=== PATIENT | male | born 1955 | race Two or more races ===

== ENCOUNTER 2018-02-10 16:08 | Emergency (ER) | payer MEDICAID ==
[~2018-02-10] VITALS: Ht 170.2 cm; Wt 83.9 kg
--- NOTE | 2018-02-10 16:25 | NUR ---
PT WALKED IN TO THE ER W. W/ C/O HEADACHE, ABDOMINAL PAIN, NAUSEA, WEAKNESS PT REPOSRTED THAT HE'S BEEN DRINKING ALCOHOL STRAIGHT FOR THE LAST 3 WKS. ALERT AND ORIENTED. NAD RR EVEN AND UNLABROED. SKIN IS WARM AND NON DIPAHORETIC.
[2018-02-10] MEDS ORDERED: ONDANSETRON HCL/PF 4 MG/2 ML VIAL ONE (16:45)
[2018-02-10 16:57] LABS: APPEARANCE,URINE CLEAR (CLEAR); BILIRUBIN,URINE NEGATIVE (NEGATIVE); BLOOD, URINE TRACE Ery/uL (NEGATIVE); COLOR,URINE YELLOW (YELLOW); KETONES,URINE NEGATIVE (NEGATIVE); LEUKOCYTE ESTERASE ,URINE NEGATIVE (NEGATIVE); NITRITE, URINE NEGATIVE (NEGATIVE); PROTEIN,URINE NEGATIVE (NEGATIVE); UGLUCOSE NEGATIVE (NEGATIVE); UROBILINOGEN,URINE 0.2 EU/dL (0.2)
[2018-02-10] MEDS ORDERED: ONDANSETRON HCL/PF 4 MG/2 ML VIAL IVP ONE (17:00)
[2018-02-10] MEDS ORDERED: IV NS 0.9% 1,000 ML BAG IV ONE (17:00)
[2018-02-10 17:17] LABS: BASOPHILS % (AUTO) 0.5 % (0.0-2.0); EOSINOPHILS % (AUTO) 2.8 % (0.0-6.0); HEMATOCRIT 46 % (39-51); HEMOGLOBIN 15.3 g/dL (13.5-17.5); LYMPHOCYTES # (AUTO) 1.5 /CMM (0.8-4.8); LYMPHOCYTES % (AUTO) 30.6 % (20.0-44.0); MEAN CORPUSCULAR HGB CONC 34 g/dl (31.0-36.0); MEAN CORPUSCULAR VOLUME 92 fL (80-96); MONOCYTES # (AUTO) 0.3 /CMM (0.1-1.30); MONOCYTES % (AUTO) 6.2 % (2.0-12.0); NEUTROPHILS % (AUTO) 59.9 % (43.0-81.0); PLATELET COUNT (AUTO) 116 /CMM (150-450); RDW COEFFICIENT OF VARIATION 13.1 (11.5-15.0); RED BLOOD CELL COUNT(AUTO) 4.97 MIL/uL (4.5-6.0)
[2018-02-10 17:26] LABS: BACTERIA,URINE None seen /HPF (None Seen); SQUAMOUS EPITHELIAL CELL,UR Few /HPF (None Seen); WBC,URINE 0-2 /HPF (0-3)
[2018-02-10 17:36] LABS: ALBUMIN 3.5 g/dL (3.4-5.0); BAND % (MANUAL) 2 % (0.0-5.0); BILIRUBIN,DIRECT 0.1 mg/dL (0.0-0.2); BILIRUBIN,TOTAL 0.8 mg/dL (0.2-1.0); CALCIUM, SERUM 8.4 mg/dL (8.5-10.1); CREATININE 0.8 mg/dL (0.6-1.3); LYMPHOCYTES % (MANUAL) 34 % (16-48); POTASSIUM 3.6 mmol/L (3.5-5.1)
[2018-02-10 17:37] LABS: EOSINOPHILS % (MANUAL) 4 % (0-4); MONOCYTES % (MANUAL) 4 % (0-11.0); NEUTROPHILS % (MANUAL) 56 (42-76)
--- NOTE | 2018-02-10 18:12 | NUR ---
Patient discharged to home in stable condition. Written and verbal after care instructions given. Patient verbalizes understanding of instruction.
--- NOTE | 2018-02-10 18:12 | NUR ---
IV removed. Catheter intact and site benign. Pressure and 4x4 applied to site. No bleeding noted.
[2018-02-10 18:13] VITALS: BP 130/86
== END 2018-02-10 18:13 | disposition home or self-care (01) ==
LOC: ER 16:11
DX: F10.20 Alcohol dependence, uncomplicated (principal); I10 Essential (primary) hypertension; E78.5 Hyperlipidemia, unspecified
CPT/HCPCS: 36415; 80048-TC; 80076-TC; 80305; 81000-TC; 83690-TC; 85025-TC; A4606; G0480; J2405; J7030; Z7610

== ENCOUNTER 2018-04-10 09:08 | Emergency (ER) | payer MEDICAID ==
[~2018-04-10] VITALS: Ht 172.7 cm; Wt 90.3 kg
--- NOTE | 2018-04-10 09:22 | NUR ---
PATIENT TO ED DT NECK AND RIGHT SHOULDER PAIN, ACHING 7/10 X 7 DAYS. NO TRAUMA NOTED. PATIENT IS AWAKE AND ALERT. SKIN IS WARM TO TOUCH AND NON DIAPHORETIC. PATIENT IS AFEBRILE. VSS
[2018-04-10] MEDS ORDERED: KETOROLAC TROMETHAMINE INJ 30 MG/ML VIAL ONE (09:54)
[2018-04-10] MEDS ORDERED: KETOROLAC TROMETHAMINE INJ 60 MG/2 ML VIAL IM ONE (10:00)
--- NOTE | 2018-04-10 10:01 | NUR ---
Patient discharged to home in stable condition. Written and verbal after care instructions given. Patient verbalizes understanding of instruction.
[2018-04-10 10:02] VITALS: BP 152/75
== END 2018-04-10 10:03 | disposition home or self-care (01) ==
LOC: ER 09:12
DX: M54.12 Radiculopathy, cervical region (principal); I10 Essential (primary) hypertension; E78.5 Hyperlipidemia, unspecified; Z98.890 Other specified postprocedural states
CPT/HCPCS: 96372; 99283; A4606; J1885; Z7610

== ENCOUNTER 2020-06-11 19:41 | Emergency (ER) | payer MEDICAID ==
[~2020-06-11] VITALS: Ht 170.2 cm; Wt 81.6 kg
--- NOTE | 2020-06-11 20:43 | NUR ---
pt cell phone [phone]
--- NOTE | 2020-06-11 21:00 | NUR ---
CALLED PATIENT TO BE PLACED IN ROOM, NOT IN WAITING ROOM. ATTEMPTED TO CALL, NO ANSWER
--- NOTE | 2020-06-11 21:54 | NUR ---
CALLED PATIENT TO BE PLACED IN ROOM, NOT IN WAITING ROOM. ATTEMPTED TO CALL, NO ANSWER
--- NOTE | 2020-06-11 22:20 | NUR ---
BIBWIFE FROM HOME TO ER BED 7. AAOX4. NOT IN RESP DISTRESS, BRAETHING EVEN AND UNLABORED. CAME IN FOR FEVER AND HEADACHE. DURING ASSESSMENT, PT WAS AFEBRILE. HEADACHE IS REPORTED ON HIS FRONTAL AREA RATED 8/10 X 3 DAYS. DENIES CP, DENIES NVD. MD WAS AT THE BEDSIDE FOR EVAL. ORDERS RECEIVED, NOTED AND CARRIED OUT. IV LINE ESTABLSIHED ON L AC 18G.
[2020-06-11] MEDS ORDERED: diphenhydrAMINE HCL 50 MG/ML VIAL ONE (22:21)
[2020-06-11] MEDS ORDERED: METOCLOPRAMIDE HCL 10 MG/2 ML VIAL ONE (22:21)
[2020-06-11] MEDS ORDERED: KETOROLAC TROMETHAMINE 15 MG/ML VIAL ONE (22:21)
[2020-06-11] MEDS ORDERED: METOCLOPRAMIDE HCL 10 MG/2 ML VIAL IV ONE (22:30)
[2020-06-11] MEDS ORDERED: IV NS 0.9% 1,000 ML BAG IV ONE (22:30)
[2020-06-11] MEDS ORDERED: KETOROLAC TROMETHAMINE INJ 30 MG/ML VIAL IV ONE (22:30)
[2020-06-11] MEDS ORDERED: diphenhydrAMINE HCL 50 MG/ML VIAL IV ONE (22:30)
--- NOTE | 2020-06-11 23:18 | NUR ---
COVID SWAB DONE AND SENT TO LAB
--- NOTE | 2020-06-11 23:48 | NUR ---
Patient discharged to home in stable condition. Written and verbal after care instructions given. Patient verbalizes understanding of instruction.IV removed. Catheter intact and site benign. Pressure and 4x4 applied to site. No bleeding noted. Pt ambulatory with a steady gait. Pt was instructed to isolate himself until he get his covid result.
[2020-06-11 23:50] VITALS: BP 113/74
== END 2020-06-11 23:50 | disposition home or self-care (01) ==
LOC: ER 19:48
DX: U07.1 COVID-19 (principal); R51 Headache; R91.8 Other nonspecific abnormal finding of lung field; E78.5 Hyperlipidemia, unspecified; I10 Essential (primary) hypertension
CPT/HCPCS: 71045; 96374; 96375; 99284; C9803; J1200; J1885; J2765; J7030; U0003

== ENCOUNTER 2020-06-15 18:13 | Inpatient (IN) | payer MEDICAID ==
[~2020-06-15] VITALS: Ht 170.2 cm; Wt 86.2 kg
[2020-06-15] MEDS ORDERED: BACL10TA PO (18:41)
[2020-06-15] MEDS ORDERED: AZIT250T13 PO (18:41)
[2020-06-15] MEDS ORDERED: MELO-107 PO (18:41)
[2020-06-15] MEDS ORDERED: LOSA50TA39 PO (18:41)
[2020-06-15] MEDS ORDERED: DEXAMETHASONE SOD PHOSPHATE 10 MG/ML VIAL ONE (18:58)
[2020-06-15 19:00] LABS: BASOPHILS % (AUTO) 0.2 % (0.0-2.0); EOSINOPHILS % (AUTO) 0.1 % (0.0-6.0); HEMATOCRIT 45 % (39-51); HEMOGLOBIN 15.3 g/dL (13.5-17.5); LYMPHOCYTES # (AUTO) 0.6 /CMM (0.8-4.8); LYMPHOCYTES % (AUTO) 6.3 % (20.0-44.0); MEAN CORPUSCULAR HGB CONC 34 g/dl (31.0-36.0); MEAN CORPUSCULAR VOLUME 93 fL (80-96); MONOCYTES # (AUTO) 0.3 /CMM (0.1-1.30); MONOCYTES % (AUTO) 3.4 % (2.0-12.0); NEUTROPHILS # (AUTO) 7.9 /CMM (1.8-8.9); PLATELET COUNT (AUTO) 242 /CMM (150-450); RED BLOOD CELL COUNT(AUTO) 4.84 MIL/uL (4.5-6.0); WHITE BLOOD COUNT (AUTO) 8.8 K/uL (4.3-11.0)
[2020-06-15] MEDS ORDERED: ACETAMINOPHEN ES 500 MG TABLET PO ONE (19:00)
[2020-06-15] MEDS ORDERED: DEXAMETHASONE SOD PHOSPHATE 10 MG/ML VIAL IV ONE (19:00)
[2020-06-15] MEDS ORDERED: ACETAMINOPHEN ES 500 MG TABLET ONE (19:05)
--- NOTE | 2020-06-15 19:15 | NUR ---
Cough, congestion, fever, and sob x 3 days. PT AAOX4, LABORED BREATHING. PT SEEN & EVAL'D BY . PLACED ON KENNEL STAFF MEMBER. PLACED BY RT ON O2 NR 15L, O2 SAT 100%, PT TERESSA WELL. MEDICATED PER ERMD ORDER, PT TERESSA WELL. WILL CONT TO MONITOR.
[2020-06-15 19:23] LABS: ALANINE AMINOTRANSFERASE 20 U/L (12-78); ALBUMIN 2.9 g/dL (3.4-5.0); ALKALINE PHOSPHATASE 63 U/L (46-116); ASPARTATE AMINOTRANSFERASE 20 U/L (15-37); B-TYPE NATRIURETIC PEPTIDE 88 PG/ML (0-125); BILIRUBIN,TOTAL 0.5 mg/dL (0.2-1.0); CALCIUM, SERUM 8.3 mg/dL (8.5-10.1); CARBON DIOXIDE 27 mmol/L (21-32); CHLORIDE 102 mmol/L (98-107); CREATININE 0.9 mg/dL (0.6-1.3); GLUCOSE 129 mg/dL (74-106); POTASSIUM 3.9 mmol/L (3.5-5.1); SODIUM SERUM 137 mmol/L (136-145); UREA NITROGEN, BLOOD 15 mg/dL (7-18)
[2020-06-15 19:25] LABS: C-REACTIVE PROTEIN 12.1 mg/dL (0.0-0.9)
[2020-06-15] MEDS ORDERED: AZITHROMYCIN 500 MG in IV D5W 250 ML IV ONE (19:30)
[2020-06-15] MEDS ORDERED: ONDANSETRON HCL/PF 4 MG/2 ML VIAL IVP PRN (19:30)
[2020-06-15] MEDS ORDERED: MAG HYDROX/AL HYDROX/SIMETH 30 ML UDC PO PRN (19:30)
[2020-06-15] MEDS ORDERED: MAGNESIUM HYDROXIDE 30 ML UDC PO PRN (19:30)
[2020-06-15] MEDS ORDERED: Z GUARD REMEDY 2 OZ OINT TP PRN (19:30)
--- NOTE | 2020-06-15 19:57 | NUR ---
NE[facility] [phone]
--- NOTE | 2020-06-15 20:15 | NUR ---
PT SITTING UP, STS THAT HE'S FEELING BETTER. PT ON NR 15L, SAT 100%. DENIES CP, N/V, WEAKNESS AT THIS TIME. WILL CONT TO MONITOR.
--- NOTE | 2020-06-15 20:52 | NUR ---
tele [phone]
--- NOTE | 2020-06-15 21:12 | NUR ---
REPORT GIVEN TO NIDA OLIVER FOR TOMER.
--- NOTE | 2020-06-15 21:30 | NUR ---
TELE/RN RECEIVED PATIENT FORM ER NURSE VIA [facility]. PATIENT WAS ABLE TO WALK FROM [facility] TO BED WITH NO DIFFICULTY. PATIENT IS A/O X4 MONGOLIAN SPEAKER CURRENTLY WITH NO SIGNS OF ANY DISTRESS. PATIENT IS ON 15L OF O2 ON A NRB MASK SATURATING AT 100%. PATIENT IS COVID POSITIVE SAYS HE GOT TESTED AT A TESTING SITE AND RECENTLY RECEIVED THE POSITIVE RESULTS. NO COMPLAINTS OF ANY SOB. RESPIRATIONS ARE EVEN AND UNLABORED. ALL VITALS WNL WITH NO FEVER. PATIENT HAS A RAC #18 PATENT AND FLUSHING WITH NO SIGN OF ANY INFILTRATION. SKIN INTACT PATIENT IS SR ON THE MONITOR HR 85. ALL PERSONAL BELONGING ACCOUNTED FOR. PATIENT RESTING IN BED WITH NO COMPLAINTS. ALL SAFETY PRECAUTIONS APPLIED. CALL LIGHT WITHIN IN REACH BED. WILL CONTINUE TO MONITOR.
[2020-06-15] MEDS ORDERED: CEFTRIAXONE 1 G VIAL ONE (21:42)
[2020-06-15] MEDS: CEFTRIAXONE 1 G in IV D5W 50 ML IV SCH (22:01)
[2020-06-15] MEDS: ENOXAPARIN SODIUM 40 MG/0.4 ML DISP.SYRIN SQ SCH (22:02)
[2020-06-15] MEDS ORDERED: AZITHROMYCIN 500 MG VIAL ONE (22:10)
[2020-06-15 22:23] VITALS: BP 143/91
[2020-06-16] VITALS: BP 129/86
[2020-06-16 04:00] VITALS: BP 124/81
[2020-06-16 07:24] LABS: HEMATOCRIT 43 % (39-51); HEMOGLOBIN 14.5 g/dL (13.5-17.5); LYMPHOCYTES # (AUTO) 0.4 /CMM (0.8-4.8); MEAN CORPUSCULAR HGB CONC 33 g/dl (31.0-36.0); MEAN CORPUSCULAR VOLUME 93 fL (80-96); MONOCYTES # (AUTO) 0.3 /CMM (0.1-1.30); MONOCYTES % (AUTO) 3.4 % (2.0-12.0); NEUTROPHILS # (AUTO) 7.8 /CMM (1.8-8.9); NEUTROPHILS % (AUTO) 91.6 % (43.0-81.0); PLATELET COUNT (AUTO) 255 /CMM (150-450); RED BLOOD CELL COUNT(AUTO) 4.67 MIL/uL (4.5-6.0); WHITE BLOOD COUNT (AUTO) 8.5 K/uL (4.3-11.0)
[2020-06-16 07:28] LABS: CALCIUM, SERUM 8.3 mg/dL (8.5-10.1); CREATININE 0.9 mg/dL (0.6-1.3); PHOSPHORUS 4.4 mg/dL (2.5-4.9); POTASSIUM 4.5 mmol/L (3.5-5.1)
[2020-06-16 08:00] VITALS: BP 131/82
--- NOTE | 2020-06-16 08:00 | NUR ---
LUIGI RN NOTES RECEIVED PATIENT RESTING IN BED. PATIENT IS A/O X4 DANISH SPEAKER CURRENTLY WITH NO SIGNS OF ANY DISTRESS. PATIENT IS ON 15L OF O2 ON A NRB MASK SATURATING AT 100%. PATIENT IS COVID POSITIVE. NO COMPLAINTS OF ANY SOB. RESPIRATIONS ARE EVEN AND UNLABORED. ALL VITALS WNL WITH NO FEVER. PATIENT HAS A RAC #18 PATENT INTACT AND FLUSHING WELL WITH NO SIGN OF ANY INFILTRATION. SKIN INTACT PATIENT IS HEATHER ON THE MONITOR HR 59. . ALL SAFETY PRECAUTIONS ARE IMPLEMENTED . CALL LIGHT WITHIN IN REACH BED. WILL CONTINUE TO MONITOR.
[2020-06-16] MEDS: MELOXICAM 7.5 MG TABLET PO SCH (08:20)
[2020-06-16] MEDS: BACLOFEN (10 MG) 10 MG TABLET PO SCH ×2 (08:20→17:37)
[2020-06-16] MEDS: DEXAMETHASONE SOD PHOSPHATE 10 MG/ML VIAL IV SCH (08:20)
[2020-06-16] MEDS: HYDROCODONE/APAP 5/325MG TABLET PO PRN (08:44)
[2020-06-16 08:45] LABS: MAGNESIUM 2.4 mg/dL (1.8-2.4)
[2020-06-16] MEDS ORDERED: TOCILIZUMAB 400 MG in IV NS 0.9% 80 ML IV ONE (10:30)
[2020-06-16] MEDS: LOSARTAN POTASSIUM 50 MG TABLET PO SCH (11:35)
[2020-06-16 12:00] VITALS: BP 127/80
[2020-06-16 12:16] LABS: ALBUMIN 2.6 g/dL (3.4-5.0); BILIRUBIN,DIRECT 0.1 mg/dL (0.0-0.2); BILIRUBIN,TOTAL 0.4 mg/dL (0.2-1.0); TOTAL PROTEIN, SERUM 6.6 g/dL (6.4-8.2)
[2020-06-16] MEDS ORDERED: INVESTIGATIONAL MED MISC 1 EA in IV NS 0.9% 250 ML IV ONE (13:00)
[2020-06-16 16:00] VITALS: BP 130/76
--- NOTE | 2020-06-16 18:05 | NUR ---
LUIGI CLOSING RN NOTES PATIENT RESTING IN BED. PATIENT IS A/O X4 GAMBIAN SPEAKER CURRENTLY WITH NO SIGNS OF ANY DISTRESS. PATIENT IS ON 15L OF O2 ON A NRB MASK SATURATING AT 100%. PATIENT IS COVID POSITIVE. NO COMPLAINTS OF ANY SOB. RESPIRATIONS ARE EVEN AND UNLABORED AT MY SHIFT. ALL VITALS WNL AND NO FEVER. PATIENT HAS A RAC #18 PATENT INTACT AND FLUSHING WELL WITH NO SIGN OF ANY INFILTRATION. SKIN INTACT PATIENT IS SINUS RHYTM IN HIS 70'S ON THE MONITOR. ALL SAFETY PRECAUTIONS ARE IMPLEMENTED . CALL LIGHT WITHIN IN REACH BED. WILL ENDORSE TO [employer] NURSE FOR TOMER
[2020-06-16 20:00] VITALS: BP 140/99
--- NOTE | 2020-06-16 20:00 | NUR ---
REHABILITATION ENGINEER OPENING NOTES RECEIVED PT WITH HOB ELEVATED ON 15L NRB 02 SATURATION OF 100%. NO SIGNS OR SYMPTOMS OF RESPIRATORY DISTRESS. PT IS AAOX4, LUXEMBOURGER SPEAKING. CURRENTLY NSR ON TELE MONITOR AT 80 BPM. SKIN IS DRY AND INTACT, URINAL IS AT BEDSIDE AND CALL LIGHT IS IN REACH. PATIENT HAS AN 18G RAC. FLUSHED WITH NO SIGNS OF INFILTRATION. INFUSING NS TKO. BED IS LOCKED AND IN LOWEST POSITION. WILL CONTINUE TO MONITOR.
[2020-06-16] MEDS: CEFTRIAXONE 1 G in IV D5W 50 ML IV SCH (20:25)
[2020-06-16] MEDS: ENOXAPARIN SODIUM 40 MG/0.4 ML DISP.SYRIN SQ SCH (20:26)
--- NOTE | 2020-06-16 22:20 | NUR ---
2220 PATIENT WITH C/O COUGH AND REQUESTING FOR COUGH SYRUP, NOTIFIED DEMETRIO US VIA PHONE, AWAITING CALL BACK.
--- NOTE | 2020-06-16 23:00 | NUR ---
2300 PATIENT ASLEEP WHEN CHECKED. REMAINS ON NRM WITH NO SIGNS OF SHORTNESS OF BREATH NOTED. HOB ELEVATED FOR MAXIMUM OXYGENATION. NO COUGH NOTED AT THIS TIME. STILL AWAITING FOR WARP SPLITTER MAGEN TO CALL BACK.
[2020-06-17] VITALS (9 sets, daily range): BP systolic 123–149; BP diastolic 72–99
[2020-06-17] MEDS: ACETAMINOPHEN 325 MG TABLET PO PRN (04:12)
--- NOTE | 2020-06-17 04:19 | NUR ---
NIDA [place]. Addendum: 06/17/20 at 0423 by FRED MERA RN PT COMPLAINING OF A HEADACHE 01/18 AND REQUESTED SOMETHING FOR PAIN. ADMINISTERED PRN TYLENOL. WILL CONTINUE TO MONITOR.
--- NOTE | 2020-06-17 06:53 | NUR ---
CLOSING RN NOTES PT IS RESTING COMFORTABLY IN BED WITH NO SIGNS OF RESPIRATORY DISTRESS AND UNLABORED. NON PRODUCTIVE COUGH NOTED. ON A NRB AT 15 LPM. 02 SATURATION IS NOW 97%. WHEN AWAKE, HE HAS BEEN A/O X4. PT HAS BEEN FLUCTUATING BETWEEN NSR AND SINUS HEATHER AT 55 BPM. URINE OUTPUT FOR THE NIGHT WAS 300ML. SKIN IS INTACT. IV RAC 18G IS FLUSHED AND TKO OF NS. WITH NO INFILTRATION NOTED. ACETAMINOPHEN GIVEN AT 0412 FOR HEADACHE WITH RELIEF. BED IS IN LOWEST POSITION AND LOCKED. WITH CALL FELIX AND URINAL IN REACH. WILL REPORT TO ONCOMING NURSE.
[2020-06-17 07:38] LABS: ALBUMIN 2.4 g/dL (3.4-5.0); BILIRUBIN,DIRECT 0.1 mg/dL (0.0-0.2); BILIRUBIN,TOTAL 0.4 mg/dL (0.2-1.0); TOTAL PROTEIN, SERUM 6.2 g/dL (6.4-8.2)
[2020-06-17] MEDS: MELOXICAM 7.5 MG TABLET PO SCH (08:08)
[2020-06-17] MEDS: DEXAMETHASONE SOD PHOSPHATE 10 MG/ML VIAL IV SCH (08:08)
[2020-06-17] MEDS: BACLOFEN (10 MG) 10 MG TABLET PO SCH ×2 (08:08→17:56)
[2020-06-17] MEDS: HYDROCODONE/APAP 5/325MG TABLET PO PRN (08:08)
[2020-06-17] MEDS: LOSARTAN POTASSIUM 50 MG TABLET PO SCH (08:14)
--- NOTE | 2020-06-17 08:15 | NUR ---
LUIGI OPENING RN NOTES RECEIVED PATIENT RESTING IN BED. PATIENT IS A/O X4 CZECH SPEAKER CURRENTLY WITH NO SIGNS OF ANY DISTRESS. PATIENT IS ON 15L OF O2 ON A NRB MASK SATURATING AT 100%. PATIENT IS COVID POSITIVE. NO COMPLAINTS OF ANY SOB. RESPIRATIONS ARE EVEN AND UNLABORED. ALL VITALS WNL WITH NO FEVER. PATIENT HAS A RAC #18 PATENT INTACT AND FLUSHING WELL AND TKO IS RUNNING. WITH NO SIGN OF ANY INFILTRATION. SKIN INTACT PATIENT IS SINUS ON THE MONITOR HR 70'S. ALL SAFETY PRECAUTIONS ARE IMPLEMENTED . CALL LIGHT WITHIN IN REACH BED. WILL CONTINUE TO MONITOR.
[2020-06-17] MEDS ORDERED: GUAIFENESIN LA 600 MG TABLET.SA PO PRN ×2 (09:30→09:49)
[2020-06-17 11:00] LABS: BASOPHILS % (AUTO) 0.1 % (0.0-2.0); HEMATOCRIT 43 % (39-51); HEMOGLOBIN 14.2 g/dL (13.5-17.5); LYMPHOCYTES # (AUTO) 0.7 /CMM (0.8-4.8); LYMPHOCYTES % (AUTO) 4.6 % (20.0-44.0); MEAN CORPUSCULAR HGB CONC 33 g/dl (31.0-36.0); MEAN CORPUSCULAR VOLUME 93 fL (80-96); MONOCYTES # (AUTO) 0.6 /CMM (0.1-1.30); MONOCYTES % (AUTO) 4.2 % (2.0-12.0); NEUTROPHILS # (AUTO) 13.3 /CMM (1.8-8.9); NEUTROPHILS % (AUTO) 91.1 % (43.0-81.0); PLATELET COUNT (AUTO) 287 /CMM (150-450); WHITE BLOOD COUNT (AUTO) 14.6 K/uL (4.3-11.0)
--- NOTE | 2020-06-17 11:14 | NUR ---
LUIGI RN NOTES PT WAS COUGHING NEED THE MED FOR IT INFORMED DR Adam PRESCIBED MUCINEX BID PRN.
[2020-06-17 11:19] LABS: CALCIUM, SERUM 8.6 mg/dL (8.5-10.1); CREATININE 0.8 mg/dL (0.6-1.3); POTASSIUM 4.5 mmol/L (3.5-5.1)
[2020-06-17 11:25] LABS: ABG BASE EXCESS 1.7 mmol/L; ABG OXYGEN SATURATION 97.7 % (92.0-98.5); ABG PH 7.446 (7.350-7.450); ABG PO2 94.6 mmHg (75.0-100.0); AaDO2 435.9 mmHg; COHb 0.3 % (0.5-1.5); MetHb 0.2 % (0.0-1.5); O2Hb 97.2 % (94.0-97.0); SITE, ABG Right Femoral; VENT MODE, BG NRB
[2020-06-17] MEDS: GUAIFENESIN LA 600 MG TABLET.SA PO PRN ×2 (12:02→17:56)
[2020-06-17] MEDS: INVESTIGATIONAL MED MISC 1 EA in IV NS 0.9% 250 ML IV SCH (13:17)
[2020-06-17] MEDS ORDERED: TOCILIZUMAB 400 MG in IV NS 0.9% 80 ML IV ONE (16:00)
--- NOTE | 2020-06-17 18:12 | NUR ---
LUIGI CLOSING RN NOTES PATIENT IS RESTING IN BED. PATIENT IS A/O X4 DIVEHI SPEAKER CURRENTLY WITH NO SIGNS OF ANY DISTRESS. PATIENT IS ON 15L OF O2 ON A NRB MASK SATURATING AT 100%. PATIENT IS COVID POSITIVE. NO COMPLAINTS OF ANY SOB. RESPIRATIONS ARE EVEN AND UNLABORED. ALL VITALS WNL WITH NO FEVER. PATIENT HAS A RAC #18 PATENT INTACT AND FLUSHING WELL AND TKO IS RUNNING. WITH NO SIGN OF ANY INFILTRATION. SKIN INTACT PATIENT IS SINUS ON THE MONITOR HR 70'S. ALL SAFETY PRECAUTIONS ARE IMPLEMENTED . CALL LIGHT WITHIN IN REACH BED. WILL ENDORSE TO BOILING TUB OPERATOR NURSE FOR TOMER.
--- NOTE | 2020-06-17 19:30 | NUR ---
RN NOTE RECEIVED PT AWAKE IN BED, AO X 4, PERSIAN SPEAKING. PATIENT IN NO S/SX OF ACUTE DISTRESS AT THIS TIME. PATIENT'S BREATHING IS EVEN AND UNLABORED. PATIENT IS ON 15 L OF OXYGEN VIA NON-REBREATHER MASK; TOLERATING WELL. PATIENT ON TELE MONITOR READING SB, HR IS @ 55. NOTED IV SITE ON RIGHT AC G18 WITH NS AT TKO; PATENT AND FLUSHING WELL, NO S/S OF INFECTION OR INFILTRATION. PATIENT IS AMBULATORY, INDEPENDENT IN BED, WITH URINAL AT BEDSIDE, CLEAR SUKHWINDER URINE NOTED. SAFETY MEASURES IMPLEMENTED PER PROTOCOL. PATIENT BED ALARM IS ON. HEAD OF BED ELEVATED. BED IS LOCKED, IN LOWEST POSITION AND SIDE RAILS UP. CALL LIGHT WITHIN REACH OF THE PATIENT. WILL CONTINUE TO MONITOR AND REASSESS FOR ANY CHANGES.
[2020-06-17] MEDS: CEFTRIAXONE 1 G in IV D5W 50 ML IV SCH (21:27)
[2020-06-17] MEDS: ENOXAPARIN SODIUM 40 MG/0.4 ML DISP.SYRIN SQ SCH (21:28)
--- NOTE | 2020-06-17 23:20 | NUR ---
RN NOTE PATIENT TO RECEIVE TRANSFUSION OF 1 UNIT CONVALESCENT PLASMA PER ORDERS FROM DR Aleah PAN, BLOOD BAG CHECKED BY ME AND CONFIRMED BY TRIPP ZARAGOZA RN, WHO VERIFIED THE FOLLOWING INFORMATION- PRODUCT: [facility] Convalescent plasma 2, type O positive, MR# [id number], Unit# [id number], expires:06/22/2020, Volume:210 for patient GAMALIEL WASSERMAN. INFUSION STARTED at 2320, VS TAKEN AND RECORDED. WILL CONTINUE TO MONITOR FOR UNUSUAL REACTIONS.
--- NOTE | 2020-06-17 23:35 | NUR ---
RN NOTE CONVALESCENT PLASMA TRANSFUSION RUNNING WELL, NO TRANSFUSION REACTION NOTED, VS WNL. WILL CONTINUE TO MONITOR
[2020-06-18] VITALS (8 sets, daily range): BP systolic 125–146; BP diastolic 73–84
--- NOTE | 2020-06-18 02:30 | NUR ---
RN NOTE CONVALESCENT PLASMA TRANSFUSION COMPLETED. NO TRANSFUSION REACTION NOTED. VS STABLE BP137/73, T97.5, P51, R20, SATURATING AT 100% ON 15 HIGH FLOW OXYGEN. NO ACUTE DISTRESS NOTED. WILL CONTINUE TO MONITOR AND REASSESS FOR CHANGES.
[2020-06-18] MEDS: GUAIFENESIN LA 600 MG TABLET.SA PO PRN ×2 (06:18→19:45)
[2020-06-18 06:38] LABS: BASOPHILS % (AUTO) 0.3 % (0.0-2.0); EOSINOPHILS % (AUTO) 0.1 % (0.0-6.0); HEMATOCRIT 43 % (39-51); HEMOGLOBIN 14.4 g/dL (13.5-17.5); LYMPHOCYTES # (AUTO) 0.7 /CMM (0.8-4.8); LYMPHOCYTES % (AUTO) 5.9 % (20.0-44.0); MEAN CORPUSCULAR HGB CONC 34 g/dl (31.0-36.0); MEAN CORPUSCULAR VOLUME 92 fL (80-96); MONOCYTES # (AUTO) 0.4 /CMM (0.1-1.30); MONOCYTES % (AUTO) 3.6 % (2.0-12.0); NEUTROPHILS # (AUTO) 10.9 /CMM (1.8-8.9); NEUTROPHILS % (AUTO) 90.1 % (43.0-81.0); PLATELET COUNT (AUTO) 321 /CMM (150-450); RED BLOOD CELL COUNT(AUTO) 4.65 MIL/uL (4.5-6.0); WHITE BLOOD COUNT (AUTO) 12.1 K/uL (4.3-11.0)
--- NOTE | 2020-06-18 07:31 | NUR ---
RN LUIGI OPENING NOTE RECEIVED PT IN BED ALERT AND AWAKE AND ORIENTED x4, SAMI SPEAKING. PT IS ON NON REBREATHER MAKE AT 15L SATURATING AT 100% AT THIS MOMENT. PT IS ON TELE MONITORING WITH SB RHYTHM NOTED CURRENTLY. PT'S SKIN IS INTACT. ABLE TO USE URINAL WITHOUT HELP. PT'S HAS A RAC 18' INTACT, PATENT AND FLUSHED WELL. PT IS FULL CODE. NO ACUTE DISTRESS OR SOB NOTED AT THIS TIME. PT HOB ELEVATED AT TOLERATED. COVID 19 ISOLATION PRECAUTIONS FOLLOWED AND IMPLEMENTED AT ALL TIMES. CALL LIGHT WITHIN REACH AND FUNCTIONING. BED LOCKED AND IN LOWEST POSITION. WILL CONTINUE TO MONITOR AND ASSES PT.
[2020-06-18 07:56] LABS: CALCIUM, SERUM 8.3 mg/dL (8.5-10.1); CREATININE 0.8 mg/dL (0.6-1.3); POTASSIUM 4.5 mmol/L (3.5-5.1)
[2020-06-18] MEDS: DEXAMETHASONE SOD PHOSPHATE 10 MG/ML VIAL IV SCH (08:08)
[2020-06-18] MEDS: MELOXICAM 7.5 MG TABLET PO SCH (08:08)
[2020-06-18] MEDS: LOSARTAN POTASSIUM 50 MG TABLET PO SCH (08:09)
[2020-06-18] MEDS: BACLOFEN (10 MG) 10 MG TABLET PO SCH ×2 (08:09→17:06)
--- NOTE | 2020-06-18 09:58 | NUR ---
RT NOTE PATIENT ON 15L NON REBREATHER. PLACED ON 6L NASAL CANNULA PER ORDER AND KEEP SPO2 ABOVE 90%. PLACED BACK ON 15L NON REBREATHER DUE TO SPO2 86%. SPO2 95% ON NON REBREATHER 15L. HR 73, RR 22. NURSE AWARE.
[2020-06-18 11:36] LABS: BASOPHILS # (AUTO) 0.1 /CMM (0.0-0.2); BASOPHILS % (AUTO) 0.7 % (0.0-2.0); EOSINOPHILS % (AUTO) 0.1 % (0.0-6.0); HEMATOCRIT 45 % (39-51); HEMOGLOBIN 14.9 g/dL (13.5-17.5); LYMPHOCYTES # (AUTO) 0.4 /CMM (0.8-4.8); LYMPHOCYTES % (AUTO) 3.2 % (20.0-44.0); MEAN CORPUSCULAR HGB CONC 34 g/dl (31.0-36.0); MEAN CORPUSCULAR VOLUME 92 fL (80-96); MONOCYTES # (AUTO) 0.3 /CMM (0.1-1.30); NEUTROPHILS # (AUTO) 10.5 /CMM (1.8-8.9); PLATELET COUNT (AUTO) 338 /CMM (150-450); RED BLOOD CELL COUNT(AUTO) 4.84 MIL/uL (4.5-6.0); WHITE BLOOD COUNT (AUTO) 11.3 K/uL (4.3-11.0)
[2020-06-18 12:00] LABS: ALBUMIN 2.4 g/dL (3.4-5.0); BILIRUBIN,DIRECT 0.1 mg/dL (0.0-0.2); BILIRUBIN,TOTAL 0.3 mg/dL (0.2-1.0); CALCIUM, SERUM 8.4 mg/dL (8.5-10.1); CREATININE 0.9 mg/dL (0.6-1.3); POTASSIUM 4.1 mmol/L (3.5-5.1); TOTAL PROTEIN, SERUM 6.3 g/dL (6.4-8.2)
[2020-06-18] MEDS: INVESTIGATIONAL MED MISC 1 EA in IV NS 0.9% 250 ML IV SCH (13:38)
[2020-06-18] MEDS: HYDROCODONE/APAP 5/325MG TABLET PO PRN (13:58)
--- NOTE | 2020-06-18 16:03 | NUR ---
RN NOTES PT HAS REFUSED LINEN CHANGE, STATES HE IS OK FOR NOW. WILL TRY AGAIN LATER.
--- NOTE | 2020-06-18 19:08 | NUR ---
RN LUIGI CLOSING NOTE PT IS CURRENTLY LAYING IN BED AWAKE AND ALERT x4. PT IS IRISH SPEAKING. V/S WITHIN NORMAL RANGE WITH NO ACUTE DISTRESS OR SOB NOTED. HOB ELEVATED TOLERATED. PT ON 15L VIA NON REBREATHER MASK SATURATING AT 99% AT THIS TIME. PTS SKIN INTACT. PT IS ABLE TO MAKE HIS NEEDS KNOWN. PT USES URINAL. PT ON TELE MONITORING WITH SINUS HEATHER RHYTHM NOTED HR 57 AT THIS TIME. PT HAS A RAC 18 @TKO INTACT PATENT AND FLUSHED WELL. ALL NEEDS MET WITH HELP OF SEAPORT PLANNING MANAGER. CALL LIGHT WITHIN REACH AND FUNCTIONING. BED LOCKED AND IN LOWEST POSITION. WILL ENDORSE TO NEXT SHIFT NURSE FOR TOMER.
--- NOTE | 2020-06-18 19:24 | NUR ---
RN NOTE RECEIVED PT AWAKE IN BED, AO X 4, TELUGU SPEAKING ONLY. PATIENT IN NO S/SX OF ACUTE DISTRESS AT THIS TIME. PATIENT'S BREATHING IS EVEN AND UNLABORED. PATIENT IS ON 15 L OF OXYGEN VIA NON-REBREATHER MASK; TOLERATING WELL. PATIENT ON TELE MONITOR READING SB, HR IS @ 50'S. NOTED IV SITE ON RIGHT AC G18 WITH NS AT TKO; PATENT AND FLUSHING WELL, NO S/S OF INFECTION OR INFILTRATION. PATIENT IS AMBULATORY, INDEPENDENT IN BED MOBILITY, WITH URINAL AT BEDSIDE, CLEAR SUKHWINDER URINE NOTED. SAFETY MEASURES IMPLEMENTED PER PROTOCOL. PATIENT BED ALARM IS ON. HEAD OF BED ELEVATED. BED IS LOCKED, IN LOWEST POSITION AND SIDE RAILS UP. CALL LIGHT WITHIN REACH OF THE PATIENT. WILL CONTINUE TO MONITOR AND REASSESS FOR ANY CHANGES.
[2020-06-18] MEDS: CEFTRIAXONE 1 G in IV D5W 50 ML IV SCH (20:17)
[2020-06-18] MEDS: ENOXAPARIN SODIUM 40 MG/0.4 ML DISP.SYRIN SQ SCH (20:21)
[2020-06-19] VITALS (7 sets, daily range): BP systolic 95–155; BP diastolic 56–99
--- NOTE | 2020-06-19 07:01 | NUR ---
RN NOTE PATIENT REMAINS IN ROOM. NO SIGNS OF RESPIRATORY/ACUTE DISTRESS NOTED. STABLE ON 15L OXYGEN VIA NON REBREATHER MASK, SATURATING >95%, TOLERATING WELL. DUE MEDICATIONS ADMINISTERED SCHEDULED. KEPT CLEAN AND COMFORTABLE. RAC G18 PATENT, WITH NS AT TKO. HEAD OF BED ELEVATED. ENCOURAGED FLUID INTAKE TO FACILITATE ELIMINATION AND LIQUIFY SECRETIONS. SAFETY MEASURES IMPLEMENTED, BED IN LOWEST POSITION, LOCKED, SIDE RAILS UP, CALL LIGHT WITHIN REACH. ENDORSED TO AM SHIFT RN FOR CONTINUITY OF CARE.
--- NOTE | 2020-06-19 07:20 | NUR ---
RN OPENING NOTE RECEIVED PT IN BED A/O x4, ALBANIAN SPEAKING. PATIENT ON NRB AT 15L SATURATING AT 100% PT TELE READING SB . PT'S HAS A RAC 18' INTACT, PATENT AND FLUSHED WELL. NO ACUTE DISTRESS OR SOB NOTED AT THIS TIME. PT HOB ELEVATED AT TOLERATED. COVID 19 ISOLATION PRECAUTIONS FOLLOWED AND IMPLEMENTED AT ALL TIMES. CALL LIGHT WITHIN REACH AND FUNCTIONING. BED LOCKED AND IN LOWEST POSITION. WILL CONTINUE TO MONITOR AND ASSES PT.
[2020-06-19] MEDS: MELOXICAM 7.5 MG TABLET PO SCH (08:23)
[2020-06-19] MEDS: BACLOFEN (10 MG) 10 MG TABLET PO SCH ×2 (08:23→17:10)
[2020-06-19] MEDS: DEXAMETHASONE SOD PHOSPHATE 10 MG/ML VIAL IV SCH (08:24)
[2020-06-19] MEDS: LOSARTAN POTASSIUM 50 MG TABLET PO SCH (08:26)
[2020-06-19 11:17] LABS: BASOPHILS % (AUTO) 0.1 % (0.0-2.0); EOSINOPHILS % (AUTO) 1.3 % (0.0-6.0); HEMATOCRIT 49 % (39-51); LYMPHOCYTES # (AUTO) 0.4 /CMM (0.8-4.8); LYMPHOCYTES % (AUTO) 3.3 % (20.0-44.0); MEAN CORPUSCULAR HGB CONC 33 g/dl (31.0-36.0); MEAN CORPUSCULAR VOLUME 93 fL (80-96); MONOCYTES # (AUTO) 0.2 /CMM (0.1-1.30); MONOCYTES % (AUTO) 1.6 % (2.0-12.0); NEUTROPHILS # (AUTO) 10.5 /CMM (1.8-8.9); NEUTROPHILS % (AUTO) 93.7 % (43.0-81.0); PLATELET COUNT (AUTO) 349 /CMM (150-450); WHITE BLOOD COUNT (AUTO) 11.3 K/uL (4.3-11.0)
[2020-06-19 11:31] LABS: ALBUMIN 2.5 g/dL (3.4-5.0); BILIRUBIN,DIRECT 0.1 mg/dL (0.0-0.2); BILIRUBIN,TOTAL 0.4 mg/dL (0.2-1.0); CALCIUM, SERUM 8.3 mg/dL (8.5-10.1); CREATININE 0.9 mg/dL (0.6-1.3); POTASSIUM 4.2 mmol/L (3.5-5.1); TOTAL PROTEIN, SERUM 6.5 g/dL (6.4-8.2)
--- NOTE | 2020-06-19 13:00 | NUR ---
Rn notes Spoke to pharmacy , waiting on Rendesevir.
[2020-06-19] MEDS: INVESTIGATIONAL MED MISC 1 EA in IV NS 0.9% 250 ML IV SCH (13:49)
--- NOTE | 2020-06-19 13:50 | NUR ---
rn notes 1350- IV Rendesevir. BP 127/87 HR92
--- NOTE | 2020-06-19 19:02 | NUR ---
RN CLOSING NOTE WILL ENDORSED TO PM NURSE FOR TOMER. PT IS CURRENTLY LAYING IN BED AWAKE AND ALERT x4. PT IS YORUBA SPEAKING. V/S WITHIN NORMAL RANGE WITH NO ACUTE DISTRESS OR SOB NOTED. HOB ELEVATED TOLERATED. PT ON 15L VIA NON REBREATHER MASK SATURATING AT 99% AT THIS TIME. PT IS ABLE TO MAKE HIS NEEDS KNOWN. PT USES URINAL. PT ON TELE MONITORING WITH SINUS HEATHER RHYTHM NOTED HR 57 AT THIS TIME. PT HAS A RAC 18 @TKO INTACT PATENT AND FLUSHED WELL. SAFETY MEASURES IN PLACE, BED IN LOCKED AND IN LOWEST POSITION. CALL LIGHT WITHIN EASY REACH
[2020-06-19] MEDS: CEFTRIAXONE 1 G in IV D5W 50 ML IV SCH (20:14)
[2020-06-19] MEDS: HYDROCODONE/APAP 5/325MG TABLET PO PRN (20:15)
[2020-06-19] MEDS: GUAIFENESIN LA 600 MG TABLET.SA PO PRN (20:15)
[2020-06-19] MEDS: ENOXAPARIN SODIUM 40 MG/0.4 ML DISP.SYRIN SQ SCH (20:16)
[2020-06-20] VITALS: BP 128/93
[2020-06-20 04:00] VITALS: BP 122/85
[2020-06-20 06:25] LABS: BASOPHILS % (AUTO) 0.3 % (0.0-2.0); EOSINOPHILS % (AUTO) 1.8 % (0.0-6.0); HEMATOCRIT 50 % (39-51); HEMOGLOBIN 17.1 g/dL (13.5-17.5); LYMPHOCYTES # (AUTO) 0.8 /CMM (0.8-4.8); LYMPHOCYTES % (AUTO) 7.2 % (20.0-44.0); MEAN CORPUSCULAR HGB CONC 34 g/dl (31.0-36.0); MEAN CORPUSCULAR VOLUME 92 fL (80-96); MONOCYTES # (AUTO) 0.2 /CMM (0.1-1.30); MONOCYTES % (AUTO) 2.1 % (2.0-12.0); NEUTROPHILS # (AUTO) 10.1 /CMM (1.8-8.9); NEUTROPHILS % (AUTO) 88.6 % (43.0-81.0); PLATELET COUNT (AUTO) 408 /CMM (150-450); RED BLOOD CELL COUNT(AUTO) 5.46 MIL/uL (4.5-6.0); WHITE BLOOD COUNT (AUTO) 11.4 K/uL (4.3-11.0)
[2020-06-20 06:38] LABS: ALBUMIN 2.5 g/dL (3.4-5.0); BILIRUBIN,DIRECT 0.2 mg/dL (0.0-0.2); BILIRUBIN,TOTAL 0.5 mg/dL (0.2-1.0); CALCIUM, SERUM 8.5 mg/dL (8.5-10.1); CREATININE 0.8 mg/dL (0.6-1.3); POTASSIUM 4.3 mmol/L (3.5-5.1); TOTAL PROTEIN, SERUM 6.5 g/dL (6.4-8.2)
--- NOTE | 2020-06-20 07:20 | NUR ---
RN OPENING NOTES RECEIVED PT IN BED RESTING, A/O X4, CITIZEN OF [place] SPEAKING. PATIENT ON NRB AT 15L SATURATING AT 100% PT TELE READING SR . NO ACUTE DISTRESS OR SOB NOTED AT THIS TIME. PT HOB ELEVATED AT TOLERATED. COVID 19 ISOLATION PRECAUTIONS FOLLOWED AND IMPLEMENTED AT ALL TIMES. IV ACCESS INTACT NAD PATENT. DSAFETY PRECAUTIONS IN PLACE. CALL LIGHT WITHIN REACH AND FUNCTIONING. BED LOCKED AND IN LOWEST POSITION. WILL CONTINUE TO MONITOR ACCORDINGLY
[2020-06-20 07:42] LABS: C-REACTIVE PROTEIN 1.5 mg/dL (0.0-0.9)
[2020-06-20] MEDS: DEXAMETHASONE SOD PHOSPHATE 10 MG/ML VIAL IV SCH (08:44)
[2020-06-20] MEDS: LOSARTAN POTASSIUM 50 MG TABLET PO SCH (08:45)
[2020-06-20] MEDS: BACLOFEN (10 MG) 10 MG TABLET PO SCH ×2 (08:45→16:20)
[2020-06-20] MEDS: MELOXICAM 7.5 MG TABLET PO SCH (08:46)
[2020-06-20 09:37] VITALS: BP 137/83
[2020-06-20 13:06] LABS: ABG BASE EXCESS -0.4 mmol/L; ABG OXYGEN SATURATION 92.1 % (92.0-98.5); ABG PO2 61.4 mmHg (75.0-100.0); AaDO2 619.6 mmHg; COHb 0.3 % (0.5-1.5); MetHb 0.3 % (0.0-1.5); O2Hb 91.5 % (94.0-97.0); SITE, ABG Left Radial; VENT MODE, BG NRB 100%
[2020-06-20] MEDS: INVESTIGATIONAL MED MISC 1 EA in IV NS 0.9% 250 ML IV SCH (14:00)
[2020-06-20 14:05] VITALS: BP 158/99
[2020-06-20] MEDS: HYDROCODONE/APAP 5/325MG TABLET PO PRN (14:16)
[2020-06-20 16:00] VITALS: BP 143/87
--- NOTE | 2020-06-20 18:47 | NUR ---
RN CLOSING NOTES PATIENT IN STABLE CONDITION. ALL NEEDS ATTENDED AND PROVIDED. ALL DUE MEDS GIVEN ORDERED. KEPT PATIENT SAFE AND COMFORTABLE. BED IN LOW/LOCKED POSITION. SIDERAILS UPX2, CALL LIGHT IN REACH. WILL ENDORSE ACCORDINGLY.
--- NOTE | 2020-06-20 19:05 | NUR ---
RN NOTE RECEIVED PATIENT IN BED RESTING WITH HOB ELEVATED, WATCHING TV. AWAKE, ALERT, ORIENTED. BREATHING IS EVEN AND NON-LABORED. NO SOB NOTED AT THIS TIME. ON O2 15 LITERS VIA NON-REBREATHER MASK. O2 SAT IS 96% AT THIS TIME. ABLE TO MAKE NEEDS KNOWN. ON ISOLATION FOR POSITIVE COVID. IV SITE ON RIGHT AC GAUGE 18 IS CLEAN, DRY, AND PATENT. PATIENT IS AMBULATORY, CONTINENT OF BOWEL AND BLADDER. URINAL AT BEDSIDE. CALL LIGHT IS WITHIN EASY REACH. WILL CONTINUE TO MONITOR.
[2020-06-20 20:00] VITALS: BP 134/92
[2020-06-20] MEDS: CEFTRIAXONE 1 G in IV D5W 50 ML IV SCH (20:24)
[2020-06-20] MEDS: ENOXAPARIN SODIUM 40 MG/0.4 ML DISP.SYRIN SQ SCH (20:25)
[2020-06-21] VITALS: BP 113/79
[2020-06-21 04:00] VITALS: BP 121/81
[2020-06-21] MEDS: ACETAMINOPHEN 325 MG TABLET PO PRN ×2 (05:16→20:00)
--- NOTE | 2020-06-21 06:58 | NUR ---
RN NOTE PATIENT REMAINED STABLE THROUGHOUT THE NIGHT. NO SIGNIFICANT CHANGES NOTED. PATIENT KEPT ON 15 LITERS NON-REBREATHER MASK. ALL DUE MEDS GIVEN AND TOLERATED WELL. ALL NEEDS ATTENDED AND MET. PATIENT IS KEPT CLEAN, DRY, AND COMFORTABLE. WILL ENDORSE TO AM SHIFT RN FOR CONTINUATION OF CARE.
[2020-06-21 07:01] LABS: BASOPHILS % (AUTO) 0.2 % (0.0-2.0); EOSINOPHILS % (AUTO) 2.4 % (0.0-6.0); HEMATOCRIT 51 % (39-51); HEMOGLOBIN 17.2 g/dL (13.5-17.5); LYMPHOCYTES # (AUTO) 0.8 /CMM (0.8-4.8); LYMPHOCYTES % (AUTO) 6.7 % (20.0-44.0); MEAN CORPUSCULAR HGB CONC 34 g/dl (31.0-36.0); MEAN CORPUSCULAR VOLUME 92 fL (80-96); MONOCYTES # (AUTO) 0.3 /CMM (0.1-1.30); MONOCYTES % (AUTO) 2.3 % (2.0-12.0); NEUTROPHILS # (AUTO) 11.2 /CMM (1.8-8.9); NEUTROPHILS % (AUTO) 88.4 % (43.0-81.0); PLATELET COUNT (AUTO) 427 /CMM (150-450); RED BLOOD CELL COUNT(AUTO) 5.55 MIL/uL (4.5-6.0); WHITE BLOOD COUNT (AUTO) 12.7 K/uL (4.3-11.0)
--- NOTE | 2020-06-21 07:15 | NUR ---
RN OPENING NOTE Received patient asleep in bed appears calm and relaxed no signs of distress. On NRB Mask 15L o2 sat was at 94%. Patient is alert oriented x4 Bolivian Speaking. Tele monitor reading SR 90s. Noted with urinal at bedside. RAC # 18 flushes well. No co pain or discomfort. Safety measures reinforced. Call light within reach. Bed locked and on lowest position. Side rails up x2. Will cont to monitor.
[2020-06-21 07:50] LABS: ALBUMIN 2.6 g/dL (3.4-5.0); BILIRUBIN,DIRECT 0.2 mg/dL (0.0-0.2); BILIRUBIN,TOTAL 0.6 mg/dL (0.2-1.0); CALCIUM, SERUM 8.7 mg/dL (8.5-10.1); CREATININE 0.7 mg/dL (0.6-1.3); POTASSIUM 4.4 mmol/L (3.5-5.1); TOTAL PROTEIN, SERUM 6.1 g/dL (6.4-8.2)
[2020-06-21 08:00] VITALS: BP 123/88
[2020-06-21] MEDS: DEXAMETHASONE SOD PHOSPHATE 10 MG/ML VIAL IV SCH (09:14)
[2020-06-21] MEDS: MELOXICAM 7.5 MG TABLET PO SCH (09:15)
[2020-06-21] MEDS: BACLOFEN (10 MG) 10 MG TABLET PO SCH ×2 (09:15→16:15)
[2020-06-21] MEDS: LOSARTAN POTASSIUM 50 MG TABLET PO SCH (09:15)
[2020-06-21 12:00] VITALS: BP 130/85
--- NOTE | 2020-06-21 13:00 | NUR ---
[facility] CALL[facility] GET A BRIEF HISTORY OF THE PATIENT. SPOKE TO ANJEL PATIENT DAIRY TRUCK DRIVER. THEY ARE CONSIDERING ACCEPTING THE PATIENT.
[2020-06-21 16:00] VITALS: BP 136/82
--- NOTE | 2020-06-21 18:47 | NUR ---
RN CLOSING NOTE Patient asleep in bed appears calm and relaxed no signs of distress. Still on NRB Mask 15L o2 sat was at 93-94%. Tele monitor reading SR-ST 90-105. Urinal at bedside collected 900ml of clear yellow urine. BM x1. RAC # 18 flushes well. No co pain or discomfort. Safety measures reinforced. Call light within reach. Bed locked and on lowest position. Side rails up x2. Will endorse to material handler 2nd shift nurse for deya..
--- NOTE | 2020-06-21 19:10 | NUR ---
RN OPENING NOTES: Rec'd pt awake in bed, A&Ox4 Romansh speaking. On isolation for positive Covid. On 15L NRB mask, tolerating well. SR/ST on tele monitor. IV site on RAC #18 patent and flushed. Dressing c/d/i. Safety measures in place. Will continue to monitor.
[2020-06-21 20:00] VITALS: BP 121/95
[2020-06-21] MEDS: GUAIFENESIN LA 600 MG TABLET.SA PO PRN (20:00)
[2020-06-21] MEDS: ENOXAPARIN SODIUM 40 MG/0.4 ML DISP.SYRIN SQ SCH (20:01)
[2020-06-21] MEDS: CEFTRIAXONE 1 G in IV D5W 50 ML IV SCH (20:02)
[2020-06-22] VITALS (7 sets, daily range): BP systolic 119–139; BP diastolic 62–101
[2020-06-22] MEDS: HYDROCODONE/APAP 5/325MG TABLET PO PRN ×4 (04:30→16:53)
--- NOTE | 2020-06-22 06:55 | NUR ---
RN CLOSING NOTES: Pt remained stable throughout shift. No acute changes noted. On isolation for pos Covid. On 15L NRB, no SOB or respiratory distress noted. SR on tele monitor. IV site on RAC #18 patent with TKO infusing. Kept clean/dry. All meds administered as ordered. Safety measures in place. Will endorse to NIDA Granger for TOMER.
--- NOTE | 2020-06-22 08:00 | NUR ---
FINANCE ASSISTANT OPENING NOTES: Rec'd pt awake in bed, A&Ox4 Haitian speaking. On isolation for positive Covid. On 15L NRB mask, tolerating well.Attempted to titrate pt to 10L via NRB and pt desaturated to 89-90%. Dr Alberto aware. SR on tele monitor. IV site on RAC #18 patent and flushed. Dressing c/d/i. Safety measures in place. Will continue to monitor.
--- NOTE | 2020-06-22 08:10 | NUR ---
Resumed pt back to O2 at 15L/min via NRB. With O2 sat back to 94%.Denies SOB. Encouraged to do deep breathing exercises. Will continue to monitor.
[2020-06-22] MEDS: MELOXICAM 7.5 MG TABLET PO SCH (08:43)
[2020-06-22] MEDS: BACLOFEN (10 MG) 10 MG TABLET PO SCH ×2 (08:43→16:53)
[2020-06-22] MEDS: LOSARTAN POTASSIUM 50 MG TABLET PO SCH (08:43)
[2020-06-22] MEDS: DEXAMETHASONE SOD PHOSPHATE 10 MG/ML VIAL IV SCH (08:43)
[2020-06-22] MEDS: GUAIFENESIN LA 600 MG TABLET.SA PO PRN (17:05)
--- NOTE | 2020-06-22 18:58 | NUR ---
PT RESTING IN BED DENYING ANY PAIN OR DISTRESS. PAIN MGT FOR HEADACHE IS EFFECTIVE.STILL ON O2 AT 15L/MIN VIA NRB. O2 SAT 94% DENIES SOB.ENCOURAGED DEEP BREATHING EXERCISE.
--- NOTE | 2020-06-22 19:15 | NUR ---
RN OPENING NOTES: RECEIVED PT A/OX 4, IN BED RESTING COMFORTABLY. PATIENT IS MALAY SPEAKING. PATIENT IN NO S/SX OF ACUTE DISTRESS AT THIS TIME. NO SOB NOTED. PATIENT'S BREATHING IS EVEN AND UNLABORED. PATIENT IS ON 15 L OF OXYGEN VIA NON REBREATHER MASK; TOLERATING WELL. PATIENT ON TELE MONITORING READING SINUS RHYTHM UPON RECEIVED. NOTED IV SITE ON R AC #18 ; PATENT IN INTACT,NO S/S OF INFECTION OR INFILTRATION.SAFETY MEASURES HAVE BEEN PROVIDED AND IMPLEMENTED. PATIENT BED ALARM IS ON. HEAD OF BED ELEVATED. BED IS LOCKED, IN LOWEST POSITION AND SIDE RAILS UP. CALL LIGHT WITHIN REACH OF THE PATIENT. ISOLATION PRECAUTIONS IN PLACE. WILL CONTINUE TO MONITOR AND REASSESS FOR ANY CHANGES.
[2020-06-22] MEDS: ENOXAPARIN SODIUM 40 MG/0.4 ML DISP.SYRIN SQ SCH (22:28)
[2020-06-23] VITALS: BP 141/95
[2020-06-23 04:00] VITALS: BP 136/76
--- NOTE | 2020-06-23 06:21 | NUR ---
RN CLOSING NOTES PATIENT REMAINS IN ROOM IN NO SIGNS OF RESPIRATORY DISTRESS. PATIENT SATURATING 96%. VITAL SIGNS WNL. SAFETY PRECAUTIONS IN PLACE AND COMFORT MEASURES RENDERED. BED IN LOWEST POSITION, CALL LIGHT WITHIN REACH, BREAKS ON, SIDE RAILS UP. ALL NEEDS ATTENDED, MEDICATIONS GIVEN SCHEDULED AND ORDERED ; SHIFT ASSESSMENT/SKIN CARE DONE. PATIENT KEPT CLEAN AND DRY. WILL ENDORSE TO INCOMING SHIFT FOR TOMER.
--- NOTE | 2020-06-23 07:35 | NUR ---
RN/LUIGI RECEIVED PATIENT IN BED. NO ACUTE DISTRESS NOTED. PATIENT ALERT & ORIENTED X4. PATIENT ON 15L OXYGEN VIA NON-REBREATHER MASK, SATURATING WELL AT 92%. PATIENT ON ENVIRONMENTAL STUDIES FACULTY MEMBER, SINUS RHYTHM NOTED. PATIENT RIGHT ANTECUBITAL IV ACCESS IN PLACE, INTACT, PATENT, FLUSHED WELL. PATIENT SAFETY MAINTAINED. CALL LIGHT WITHIN REACH. WILL CONTINUE TO MONITOR.
[2020-06-23 08:00] VITALS: BP 131/83
[2020-06-23] MEDS: MELOXICAM 7.5 MG TABLET PO SCH (08:39)
[2020-06-23] MEDS: BACLOFEN (10 MG) 10 MG TABLET PO SCH ×2 (08:39→16:43)
[2020-06-23] MEDS: LOSARTAN POTASSIUM 50 MG TABLET PO SCH (08:40)
[2020-06-23] MEDS: DEXAMETHASONE SOD PHOSPHATE 10 MG/ML VIAL IV SCH (08:40)
[2020-06-23 12:00] VITALS: BP 143/79
--- NOTE | 2020-06-23 14:46 | NUR ---
RN/LUIGI PATIENT IN STABLE CONDITION. GAVE REPORT TO NIDA ELIAS FOR CONTINUITY OF CARE
--- NOTE | 2020-06-23 14:47 | NUR ---
INDIAN TRADER NOTES Received Patient resting in bed. A/O x 4, Moroccan speaking. VS stable with no acute distress. Breathing even and unlabored on 15LPM via non-rebreather with no respiratory distress. Denies pain. No signs and symptoms of pain. Telemonitor in place and patent reading SR with HR-68. 18g PIV on RAC clean, intact, patent and flushing well. Safety precautions in place. Bed locked and set to lowest position with side rails x 2 up. All needs rendered at this time. Call light within reach. Will continue to monitor.
[2020-06-23 16:00] VITALS: BP 130/72
--- NOTE | 2020-06-23 18:47 | NUR ---
HEALTH SAFETY INSTRUCTOR CLOSING NOTES Patient resting in bed. A/O x 4, Uzbek speaking. VS stable with no acute distress. Breathing even and unlabored on 15LPM via non-rebreather with no respiratory distress. Denies pain. No signs and symptoms of pain. Telemonitor in place and patent reading SR with HR-84. 18g PIV on RAC clean, intact, patent and flushing well. Safety precautions in place. Bed locked and set to lowest position with side rails x 2 up. All needs rendered at this time. Call light within reach. Will endorse plan of care to oncoming shift.
[2020-06-23 20:00] VITALS: BP 153/81
[2020-06-23] MEDS: ENOXAPARIN SODIUM 40 MG/0.4 ML DISP.SYRIN SQ SCH (21:36)
[2020-06-24] VITALS: BP 129/85
[2020-06-24 04:00] VITALS: BP 114/70
[2020-06-24 06:27] LABS: BASOPHILS % (AUTO) 0.2 % (0.0-2.0); HEMATOCRIT 48 % (39-51); LYMPHOCYTES % (AUTO) 6.1 % (20.0-44.0); MEAN CORPUSCULAR HGB CONC 33 g/dl (31.0-36.0); MEAN CORPUSCULAR VOLUME 92 fL (80-96); MONOCYTES # (AUTO) 0.7 /CMM (0.1-1.30); MONOCYTES % (AUTO) 4.6 % (2.0-12.0); NEUTROPHILS % (AUTO) 88.1 % (43.0-81.0); PLATELET COUNT (AUTO) 414 /CMM (150-450); RED BLOOD CELL COUNT(AUTO) 5.24 MIL/uL (4.5-6.0); WHITE BLOOD COUNT (AUTO) 15.9 K/uL (4.3-11.0)
[2020-06-24 06:46] LABS: CALCIUM, SERUM 8.4 mg/dL (8.5-10.1); POTASSIUM 4.5 mmol/L (3.5-5.1)
--- NOTE | 2020-06-24 07:41 | NUR ---
LOGISTICS SOLUTION MANAGER NOTES PATIENT RECEIVED IN BED RESTING COMFORTABLY, ON 15L NON-REBREATHER MASK, WITH NON-LABORED BREATHING AND NO SOB NOTED AT THIS TIME. PATIENT IV ACCESS INTACT AND PATENT. ON KRAFT DIGESTER OPERATOR SINUS RHYTHM 80'S. PATIENT PRESENTS NO PAIN AT THIS TIME. SAFETY PRECAUTIONS IMPLEMENTED WITH BED LOCKED, BED IN THE LOWEST POSITION, BILATERAL SIDE RAILS UP AND CALL LIGHT WITHIN EASY REACH OF THE PATIENT. WILL CONTINUE TO MONITOR.
[2020-06-24 08:00] VITALS: BP 156/76
[2020-06-24] MEDS: MELOXICAM 7.5 MG TABLET PO SCH (08:46)
[2020-06-24] MEDS: DEXAMETHASONE SOD PHOSPHATE 10 MG/ML VIAL IV SCH (08:46)
[2020-06-24] MEDS: BACLOFEN (10 MG) 10 MG TABLET PO SCH ×2 (08:46→16:03)
[2020-06-24] MEDS: LOSARTAN POTASSIUM 50 MG TABLET PO SCH (08:57)
--- NOTE | 2020-06-24 09:50 | NUR ---
RECEIVED REPORT FROM BRAULIO ALVA FOR TOMER. PATIENT IS ON NRB 15L O2 SAT 96% NO SIGNS OF DISTRESS.
[2020-06-24 11:31] LABS: ABG BASE EXCESS -0.3 mmol/L; ABG OXYGEN SATURATION 95.6 % (92.0-98.5); ABG PH 7.454 (7.350-7.450); ABG PO2 73.2 mmHg (75.0-100.0); AaDO2 462.6 mmHg; COHb 0.3 % (0.5-1.5); MetHb 0.2 % (0.0-1.5); O2Hb 95.1 % (94.0-97.0); SITE, ABG Right Radial; VENT MODE, BG NRB
[2020-06-24 12:00] VITALS: BP 132/77
[2020-06-24 16:00] VITALS: BP 129/73
[2020-06-24] MEDS: HYDROCODONE/APAP 5/325MG TABLET PO PRN (16:14)
--- NOTE | 2020-06-24 18:25 | NUR ---
RN LUIGI CLOSING NOTE PT IS IN BED AWAKE, ALERT AND ORIENTED X4. PT IS PAKISTANI SPEAKING WITH LIMITED SINHAL[place]. PT IS IN STABLE CONDITION WITH V/S WITHIN NORMAL RANGE AT THIS TIME. PT IS ON NON REBREATHER MASK 15L SATURATING AT 98% AT THIS MOMENT. PT IS ON TELE MONITORING WITH SINUS RHYTHM HR 83 NOTED AT THIS TIME. PT RAC INTACT, PATENT AND FLUSHING WELL. NO ACUTE DISTRESS NOTED. HOB ELEVATED TOLERATED. ALL NEEDS MET WITH HELP OF ECONOMIC ADVISER.CALL LIGHT WITHIN REACH AND FUNCTIONING. BED LOCKED AND IN LOWEST POSITION. WILL ENDORSE TO NEXT SHIFT NURSE FOR TOMER.
[2020-06-24 20:00] VITALS: BP 114/77
--- NOTE | 2020-06-24 21:30 | NUR ---
RN OPENING NOTE PT RECEIVED IN BED. PT IS A/O X4. ON 15 L VIA NON REBREATHER SATING 98%. PT DENIES ANY PAIN. ON TELE MONITOR SHOWING SR IN 80S. PT HAS RAC 18 G S/L FLUSHES WELL AND PATENT. SAFETY MEASURES IN PLACE CALL LIGHT IN REACH, BED AT LOWEST POSITION AND LOCKED, SIDE RAILS UP X2.
[2020-06-24] MEDS: ENOXAPARIN SODIUM 40 MG/0.4 ML DISP.SYRIN SQ SCH (21:45)
[2020-06-25] VITALS: BP 125/88
[2020-06-25 04:00] VITALS: BP 113/73
--- NOTE | 2020-06-25 07:03 | NUR ---
RN CLOSING NOTE PT REMAINED STABLE DURING MY SHIFT. REPORT GIVEN TO INCOMING SHIFT FOR TOMER.
--- NOTE | 2020-06-25 07:55 | NUR ---
GPS OVERFLOW RN OPENING NOTE RECEIVED PT IN BED AWAKE, ALERT AND ORIENTED X1. PT IS CURRENTLY ON ROOM AIR SATURATING AT 96%. PT'S V/S ARE WITHIN NORMAL RANGE. PT IS IN STABLE CONDITION AT HIS TIME. NO ACUTE DISTRESS OR SOB NOTED. HEAD OF BED ELEVATED TOLERATED. PT IS ON TELE MONITORING WITH SINUS HEATHER HR 46 AT THIS TIME. PT ON BILATERAL RESTRAINT ASSESS FOR SKIN INTEGRITY, RANGE OF MOTION AND CIRCULATION. PT'S SKIN IS INTACT. PT KEPT CLEAN, DRY AND COMFORTABLE. PT IS FULL CODE. ALL PRECAUTIONS FOLLOWED AND IMPLEMENTED PER COVID 19 DIAGNOSIS. RN NURSE RACHELLE AT BEDSIDE TO ENSURE SAFELY OF PT AT ALL TIMES. PT WAS ABLE TO SPEAK TO NACHO TRAN IN THIS MORNING. INFORMED MARC ABOUT'S PT'S STATUS AND CONDITION, NACHO TRAN VERBALIZED UNDERSTANDING. PT'S CALL LIGHT WITHIN REACH AND FUNCTIONING. BED LOCKED AND IN LOWEST POSITION. WILL CONTINUE TO MONITOR AND ASSESS PT. Addendum: 06/25/20 at 0942 by ALEJANDRO GALEANO RN WRONG PATIENT
[2020-06-25 08:00] VITALS: BP 121/70
--- NOTE | 2020-06-25 08:10 | NUR ---
RN LUIGI OPENING NOTE RECEIVED PT IN BED, AWAKE AND ALERT X4. PT IS [place] SPEAKING WITH LIMITED PERUVIAN. PT IS ABLE TO MAKE HIS NEEDS KNOWN. PT IS ON OXYGEN 15L VIA NON REBREATHER MASK SATURATING AT 100% AT THIS TIME. V/S WITHIN NORMAL RANGE WITH NO ACUTE DISTRESS OR SOB NOTED. HOB ELEVATED TOLERATED. PT'S SKIN IS INTACT. URINAL AT BEDSIDE. PT HAS A RAC 18' SALINE LOCK INTACT, PATENT AND FLUSHED WELL. PT IS FULL CODE WITH COVID 19 PRECAUTIONS FOLLOWED AND IMPLEMENTED AT ALL TIMES. CALL LIGHT WITHIN REACH AND FUNCTIONING. BED LOCKED AND IN LOWEST POSITION. WILL CONTINUE TO MONITOR AND ASSESS PT.
[2020-06-25] MEDS: LOSARTAN POTASSIUM 50 MG TABLET PO SCH (08:32)
[2020-06-25] MEDS: BACLOFEN (10 MG) 10 MG TABLET PO SCH ×2 (08:32→16:03)
[2020-06-25] MEDS: MELOXICAM 7.5 MG TABLET PO SCH (08:33)
[2020-06-25] MEDS: DEXAMETHASONE SOD PHOSPHATE 10 MG/ML VIAL IV SCH (08:34)
[2020-06-25 12:00] VITALS: BP 130/82
[2020-06-25 16:00] VITALS: BP 133/74
--- NOTE | 2020-06-25 18:48 | NUR ---
RN LUIGI/TELE CLOSING NOTE PT IS CURRENTLY IN BED, AWAKE, ALERT AND ORIENTED X4. PT IS ABLE TO MAKE HIS NEEDS KNOWN. PT IS ON 15L OF OXYGEN VIA NON BREATHER MASK. PT HAS AN 18 RAC S/L INTACT, PATENT AND FLUSHED WELL. PT IS IN STABLE CONDITION WITH NO ACUTE DISTRESS OR SOB NOTED. HOB ELEVATED AT ALL TIMES TOLERATED. PT ON TELE MONITORING WITH SINUS RHYTHM HR 79 AT THIS TIME. ALL MEDS ADMINISTERED AND TOLERATED WELL WITH NO ADVERSE EFFECTS NOTED. PT IS IN STABLE CONDITION AT THIS TIME. PT IS FULL CODE. ALL SAFETY PRECAUTIONS TAKEN PER COVID 19 DIAGNOSIS. CALL LIGHT WITHIN REACH AND FUNCTIONING. WILL ENDORSE TO NEXT SHIFT NURSE FOR TOMER.
[2020-06-25 20:00] VITALS: BP 127/71
--- NOTE | 2020-06-25 20:00 | NUR ---
LUIGI RN OPENING NOTES RECEIVED PATIENT IN BED, AWAKE, CONSCIOUS, COOPERATIVE, A/O X4, O2 @15LPM VIA NON REBREATHER MASK, UNLABORED BREATHING, NO SIGNS OF RESPIRATORY DISTRESS, RAC #18G SL TKO, NO COMPLAINTS OF PAIN, SIDE RAILS UP.
[2020-06-25] MEDS: ENOXAPARIN SODIUM 40 MG/0.4 ML DISP.SYRIN SQ SCH (21:04)
[2020-06-26] VITALS: BP 109/66
[2020-06-26 04:00] VITALS: BP 114/66
--- NOTE | 2020-06-26 06:34 | NUR ---
LUIGI RN CLOSING NOTES ENDORSED PATIENT IN BED, AWAKE, CONSCIOUS, COOPERATIVE, A/O X4, O2 @15LPM VIA NON REBREATHER MASK, UNLABORED BREATHING, NO SIGNS OF RESPIRATORY DISTRESS, RAC #18G SL TKO, NO COMPLAINTS OF PAIN, DUE MED GIVEN, SIDE RAILS UP FOR SAFETY.
--- NOTE | 2020-06-26 07:39 | NUR ---
GLASS GRINDER/ LUIGI OPENING NOTE RECEIVED PT IN BED AWAKE, ALERT AND ORIENTED X4. PT IS KHMER SPEAKING WITH LIMITED CHINESE. PT IS ABLE TO MAKE HIS NEEDS KNOWN. PT IS ON TELE MONITORING SINUS RHYTHM HR 87 AT THIS TIME. PT HAS A RIGHT AC 18' INTACT, PATENT AND FLUSHED WELL. PT ON OXYGEN 15L NON REBREATHER MASK SATURATING AT 96% AT THIS TIME. PT IS FULL CODE. ALL SAFETY PRECAUTIONS TAKEN AND IMPLEMENTED PER COVID 19 DIAGNOSIS. PT IS IN STABLE CONDITION. NO ACUTE DISTRESS OR SOB NOTED. HOB ELEVATED TOLERATED. CALL LIGHT WITHIN REACH AND FUNCTIONING. BED LOCKED AND IN LOWEST POSITION. WILL CONTINUE TO MONITOR AND ASSESS PT.
[2020-06-26 08:00] VITALS: BP 113/71
[2020-06-26] MEDS: MELOXICAM 7.5 MG TABLET PO SCH (09:04)
[2020-06-26] MEDS: BACLOFEN (10 MG) 10 MG TABLET PO SCH ×2 (09:04→16:34)
[2020-06-26] MEDS: LOSARTAN POTASSIUM 50 MG TABLET PO SCH (09:04)
[2020-06-26] MEDS: DEXAMETHASONE SOD PHOSPHATE 10 MG/ML VIAL IV SCH (09:04)
[2020-06-26 12:00] VITALS: BP 124/76
[2020-06-26 16:00] VITALS: BP 129/81
--- NOTE | 2020-06-26 18:50 | NUR ---
WALLPAPER CONSULTANT/LUIGI CLOSING NOTE PT IS CURRENTLY IN BED AWAKE, ALERT AND ORIENTED X4. PT IS INDONESIAN SPEAKING WITH LIMITED MONGOLIAN. PT IS ON OXYGEN 15L VIA NON REBREATHER MASK. PT ON TELE MONITORING WITH SINUS RHYTHM HR 78 NOTED AT THIS TIME. PT'S RIGHT AC 18' INTACT, PATENT AND FLUSHED WELL. SCHEDULED MEDS GIVEN AND TOLERATED WELL WITH NO ADVERSE EFFECTS NOTED AT THIS TIME. PT IS IN STABLE CONDITION WITH NO ACUTE DISTRESS NOTED AT THIS TIME. CALL LIGHT WITHIN REACH AND FUNCTIONING. BED LOCKED AND IN LOWEST POSITION. WILL ENDORSE TO NEXT SHIFT NURSE FOR TOMER.
--- NOTE | 2020-06-26 19:30 | NUR ---
UTILITY APPRAISER OPENING NOTES PATIENT AWAKE IN BED. A/OX4. ON NON-REBREATHER MASK 15L; NO S/S OF ACUTE RESPIRATORY DISTRESS; PATIENT C/O SLIGHT SOB. PATIENT DENIES ANY PAIN AT THIS TIME. TELE MONITOR READING NSR, HEART RATE 91. IV PRESENT ON RIGHT AC, SIZE 18, INTACT & PATENT WITH NS RUNNING TKO. CONTACT/DROPLET PRECAUTIONS IN PLACE FOR POSITIVE COVID 19. SAFETY MEASURES IN PLACE AND PATIENT'S NEEDS IN PLACE. BED LOCKED, SIDE RAILS X2, HOB ELEVATED, CALL LIGHT WITHIN REACH. WILL CONTINUE TO MONITOR.
[2020-06-26 20:00] VITALS: BP 122/84
[2020-06-26] MEDS: ENOXAPARIN SODIUM 40 MG/0.4 ML DISP.SYRIN SQ SCH (20:21)
[2020-06-27] VITALS: BP 131/73
[2020-06-27 04:00] VITALS: BP 95/63
--- NOTE | 2020-06-27 05:19 | NUR ---
CEMENT WORKER NOTES TITRATED OXYGEN FROM 15L TO 12L ON NON-REBREATHER MASK; SPO2 97%. NO S/S OF ACUTE RESPIRATORY DISTRESS NOTED. WILL CONTINUE TO MONITOR.
--- NOTE | 2020-06-27 06:42 | NUR ---
ISOTOPE HYDROLOGIST CLOSING NOTES PATIENT SLEEPING IN BED, EASY TO AWAKEN. A/OX4. ON NON-REBREATHER MASK 12L; SPO2 97%; NO S/S OF ACUTE RESPIRATORY DISTRESS. TELE MONITOR READING SINUS HEATHER, HEART RATE 48. IV PRESENT ON RIGHT AC, SIZE 18, INTACT & PATENT WITH NS RUNNING TKO. SAFETY MEASURES IN PLACE AND PATIENT'S NEEDS IN PLACE. BED LOCKED, SIDE RAILS X2, HOB ELEVATED, CALL LIGHT WITHIN REACH. WILL ENDORSE TO DAY SHIFT NURSE PLAN OF CARE.
[2020-06-27 08:00] VITALS: BP 112/66
--- NOTE | 2020-06-27 08:00 | NUR ---
LOCAL DELIVERY DRIVER NOTES PATIENT IN BED AWAKE/A/OX4. NO SOB OR DISCOMFORT NOTED AT THIS TIME. ON 12L NON REBREATHER MASK SATURATING 95%. ON DROPLET ISOLATION FOR COVID. RIGHT SITE AC SALINE LOCK PATENT(TKO). CALL LIGHT WITHIN REACH . WILL MONITOR THE PATIENT.
[2020-06-27] MEDS: MELOXICAM 7.5 MG TABLET PO SCH (08:55)
[2020-06-27] MEDS: BACLOFEN (10 MG) 10 MG TABLET PO SCH ×2 (08:55→17:00)
[2020-06-27] MEDS: LOSARTAN POTASSIUM 50 MG TABLET PO SCH (08:55)
[2020-06-27] MEDS: DEXAMETHASONE SOD PHOSPHATE 10 MG/ML VIAL IV SCH ×2 (08:55→08:58)
[2020-06-27 12:00] VITALS: BP 127/67
[2020-06-27 16:00] VITALS: BP 126/73
--- NOTE | 2020-06-27 18:49 | NUR ---
PHOTOCOPYING EQUIPMENT MECHANIC NOTES PATIENT IN BED CALM AND RELAXED, A/OX4 STILL ON COVID DROPLET ISOLATION AND NON REBREATHER MASK 12L. ALL NEEDS ATTENDED. NO SOB OR DISCOMFORT AT THIS TIME. NO MAJOR CHANGES DURING THE SHIFT. REPORT GIVEN TO CIRCLE EDGER NURSE FOR TOMER.
--- NOTE | 2020-06-27 19:20 | NUR ---
RN OPENING NOTE RECEIVED PATIENT IN BED RESTING ALERT ORIENTED X4 VERBALLY RESPONSIVE,ABLE TO MAKE NEEDS KNOWN,ON 12L/MIN NON BREATHER MASK OXYGEN NO SOB NOT ACUTE DISTRESS AT THIS TIME NOTED,MONITOR FOR COVID 19 POSITIVE DROPLET/CONTACT ISOLATION,CONTINENT TO BOWEL/BLADDER SKIN IS WARM TO TOUCH,IV SITE IS ON RIGHT AC INTACT PATENT FLUSHED.IMPLEMENT SAFETY MEASURE,BED ALARM IS ON AND IN LOW POSITION,CALL LIGHT WITHIN REACH,CONTINUE TO MONITOR,
[2020-06-27 20:00] VITALS: BP 124/76
[2020-06-27] MEDS: ENOXAPARIN SODIUM 40 MG/0.4 ML DISP.SYRIN SQ SCH (21:06)
[2020-06-28] VITALS: BP 114/69
[2020-06-28] MEDS: ACETAMINOPHEN 325 MG TABLET PO PRN (02:12)
--- NOTE | 2020-06-28 02:12 | NUR ---
RN NOTE ACETAMINOPHEN PRN 325MG 2 TABLET EQUAL 650MG FOR MILD PAIN 3/10 GIVEN
[2020-06-28 04:00] VITALS: BP 119/73
[2020-06-28 06:30] LABS: BASOPHILS % (AUTO) 0.2 % (0.0-2.0); EOSINOPHILS % (AUTO) 0.6 % (0.0-6.0); HEMATOCRIT 43 % (39-51); HEMOGLOBIN 14.2 g/dL (13.5-17.5); LYMPHOCYTES # (AUTO) 0.9 /CMM (0.8-4.8); MEAN CORPUSCULAR HGB CONC 34 g/dl (31.0-36.0); MEAN CORPUSCULAR VOLUME 93 fL (80-96); MONOCYTES # (AUTO) 0.7 /CMM (0.1-1.30); MONOCYTES % (AUTO) 5.1 % (2.0-12.0); NEUTROPHILS # (AUTO) 11.5 /CMM (1.8-8.9); NEUTROPHILS % (AUTO) 87.1 % (43.0-81.0); PLATELET COUNT (AUTO) 306 /CMM (150-450); RED BLOOD CELL COUNT(AUTO) 4.57 MIL/uL (4.5-6.0); WHITE BLOOD COUNT (AUTO) 13.2 K/uL (4.3-11.0)
--- NOTE | 2020-06-28 06:40 | NUR ---
RN CLOSING NOTE PATIENT REMAINS IN ALERT ORIENTED X4 VERBALLY RESPONSIVE,ON MONITORING FOR COVID 19 POSITIVE AND DROPLET/CONTACT ISOLATION ALSO HE IS ON 12L OXYGEN VIA NON-BREATHER MASK,NO SOB NOT ACUTE DISTRESS NOTED,ALL DUE MEDS GIVEN MD ORDERED,KEPT CLEAN AND DRY ALL THE TIME,KEPT CALL LIGHT WITHIN REACH,IV SITE IS ON RIGHT AC INTACT PATENT.ENDORSE NEXT COMING SHIFT FOR CONTINUATION OF CARE.
[2020-06-28 06:57] LABS: CALCIUM, SERUM 8.1 mg/dL (8.5-10.1); CREATININE 0.9 mg/dL (0.6-1.3); MAGNESIUM 2.1 mg/dL (1.8-2.4); PHOSPHORUS 3.9 mg/dL (2.5-4.9); POTASSIUM 4.4 mmol/L (3.5-5.1)
--- NOTE | 2020-06-28 07:30 | NUR ---
TELE/RN OPENING NOTES Patient resting in bed, A&O x 4, Urdu speaking but understands micronesian. No complaints of pain/discomfort at this time. Breathing even and non-labored on 12 L via NRB. No respiratory or cardiac distress noted. On tele monitor, reading ST 112. Denies any pain/discomfort. IV access noted on R AC , patent and intact, running NS TKO. No s/s of infiltration, infection, or bleeding noted on site. Sensation from all peripheral extremities remained intact. Fall precautions maintained. Will continue with current plan of care.
[2020-06-28 07:59] LABS: ABG BASE EXCESS 2.7 mmol/L; ABG OXYGEN SATURATION 96.9 % (92.0-98.5); ABG PCO2 45.5 mmHg (35.0-45.0); ABG PH 7.408 (7.350-7.450); ABG PO2 87.1 mmHg (75.0-100.0); AaDO2 363.1 mmHg; COHb 0.5 % (0.5-1.5); MetHb 0.1 % (0.0-1.5); O2Hb 96.3 % (94.0-97.0); SITE, ABG Left Radial; VENT MODE, BG 12 lpm NRB
[2020-06-28 08:00] VITALS: BP 121/74
[2020-06-28] MEDS: LOSARTAN POTASSIUM 50 MG TABLET PO SCH (08:37)
[2020-06-28] MEDS: BACLOFEN (10 MG) 10 MG TABLET PO SCH ×2 (08:37→16:08)
[2020-06-28] MEDS: DEXAMETHASONE SOD PHOSPHATE 10 MG/ML VIAL IV SCH (08:37)
[2020-06-28] MEDS: MELOXICAM 7.5 MG TABLET PO SCH (08:37)
--- NOTE | 2020-06-28 09:33 | NUR ---
TELE/RN NOTES Dr. Alberto at bedside, reported ABG results for PCO2 - 45.5, ordered 6 L oxygen via NC, keep at 90%. Order carried out.
[2020-06-28 12:00] VITALS: BP 126/69
[2020-06-28 16:00] VITALS: BP 133/85
--- NOTE | 2020-06-28 18:21 | NUR ---
TELE/RN CLOSING NOTES Patient resting in bed and remained stable throughout shift. A&O x 4, VSS, afebrile, no respiratory distress noted. Patient saturating well on 6L oxygen via NC, no respiratory distress noted. On tele monitor, reading SR 96. No cardiac distress noted. Denies any pain/discomfort. IV access on R AC remained patent and intact, running NS TKO. No s/s of infiltration, infection, or bleeding noted on site. Sensation from all peripheral extremities remained intact. Fall precautions maintained. Will endorse to power and recovery shift engineer nurse.
--- NOTE | 2020-06-28 19:43 | NUR ---
RN OPENING NOTES PATIENT RECEIVED RESTING IN BED A/O X 4, PASHT[place] SPEAKING. ON 5L OF O2 WITH BREATHING EVEN AND UNLABORED, NO SOB NOTED O2SAT 95%. NO SIGNS OF ACUTE DISTRESS. NO COMPLAINTS OF PAIN OR DISCOMFORT AT THE MOMENT. IV LOCATED ON R AC TKO. SAFETY PRECAUTIONS IN PLACE WITH BED IN LOWEST POSITION, CALL LIGHT WITHIN REACH, BREAKS ON, SIDE RAILS UP. WILL CONTINUE TO MONITOR THROUGHOUT THE NIGHT.
[2020-06-28 20:00] VITALS: BP 134/89
[2020-06-28] MEDS: ENOXAPARIN SODIUM 40 MG/0.4 ML DISP.SYRIN SQ SCH (21:47)
[2020-06-29] VITALS (7 sets, daily range): BP systolic 101–136; BP diastolic 66–85
--- NOTE | 2020-06-29 06:39 | NUR ---
RN CLOSING NOTES PATIENT RESTING IN BED A/O X 4, MOSTLY KINY[place]WANDA SPEAKING ABLE TO UNDERSTAND SOME CITIZEN OF [place]. ON 2L OF O2 WITH BREATHING EVEN AND UNLABORED, NO SOB NOTED O2 SAT 95%. NO SIGNS OF ACUTE DISTRESS. NO COMPLAINTS OF PAIN OR DISCOMFORT AT THE MOMENT. IV LOCATED ON R AC TKO. SAFETY PRECAUTIONS IN PLACE WITH BED IN LOWEST POSITION, CALL LIGHT WITHIN REACH, BREAKS ON, SIDE RAILS UP. ALL NEEDS ATTENDED TO THROUGHOUT THE NIGHT. WILL ENDORSE TO ONCOMING SHIFT ABOUT TOMER.
--- NOTE | 2020-06-29 07:30 | NUR ---
RN/LUIGI RECEIVED PATIENT IN BED. NO ACUTE DISTRESS NOTED. ALERT & ORIENTED X4. PATIENT ON 5L OXYGEN VIA NASAL CANULA, SATURATING WELL AT 92%, BREATHING EVEN AND UNLABORED. PATIENT ON TIRE STRIPPER, SINUS RHYTHM NOTED. PATIENT IV ACCESS RIGHT ANTECUBITAL INTACT, PATENT, FLUSHED WELL. PATIENT SAFETY MAINTAINED. CALL LIGHT WITHIN REACH. WILL CONTINUE TO MONITOR.
[2020-06-29] MEDS: DEXAMETHASONE SOD PHOSPHATE 10 MG/ML VIAL IV SCH (08:57)
[2020-06-29] MEDS: MELOXICAM 7.5 MG TABLET PO SCH (08:57)
[2020-06-29] MEDS: LOSARTAN POTASSIUM 50 MG TABLET PO SCH (08:57)
[2020-06-29] MEDS: BACLOFEN (10 MG) 10 MG TABLET PO SCH ×2 (08:57→16:27)
--- NOTE | 2020-06-29 18:39 | NUR ---
RN/LUIGI PATIENT IN BED. NO ACUTE DISTRESS NOTED. ALERT & ORIENTED X4. PATIENT ON 4L OXYGEN VIA NASAL CANULA, SATURATING WELL AT 94%, BREATHING EVEN AND UNLABORED. PATIENT ON WETLANDS TECHNICIAN, SINUS RHYTHM NOTED. PATIENT IV ACCESS RIGHT ANTECUBITAL INTACT, PATENT, FLUSHED WELL. PATIENT SAFETY MAINTAINED. CALL LIGHT WITHIN REACH. WILL ENDORSE PLAN OF CARE TO ONCOMING NURSE FOR CONTINUITY OF CARE
--- NOTE | 2020-06-29 19:30 | NUR ---
TELE 1 RN NOTE RECEIVED PATIENT SITTING IN BED. ALERT AND ORIENTED X4. EQUATORIAL GUINE[place] SPEAKING. ISOLATION PRECAUTION FOR DROPLET COVID POSITIVE 06/15/20. PT IS ON O2 4-5L VIA NC TO KEEP SATURATION ABOVE 90%. PT IS CONTINENT PER URINAL. HAS SALINE LOCK ON RIGHT AC, INTACT AND PATENT. IVF AT TKO RATE. CALL LIGHT WITHIN REACH. BED IS ON THE LOWEST POSITION AND LOCKED. NEEDS ANTICIPATED.
[2020-06-29] MEDS: ENOXAPARIN SODIUM 40 MG/0.4 ML DISP.SYRIN SQ SCH (21:03)
[2020-06-29] MEDS: ACETAMINOPHEN 325 MG TABLET PO PRN (21:04)
[2020-06-30] VITALS: BP 117/77
--- NOTE | 2020-06-30 01:05 | NUR ---
TELE1 RN NOTES SLEEPING,KEPT WARM AND COMFORTABLE.
[2020-06-30 04:00] VITALS: BP 123/80
--- NOTE | 2020-06-30 06:10 | NUR ---
TELE 1 RN NOTE PATIENT IS AWAKE. HEADACHE IMPROVED WITH PRN TYLENOL. SALINE LOCK IS PATENT. REMAINS IN ISOLATION FOR COVID 19 POSITIVE. NO SOB. NO FEVER. CALL LIGHT WITHIN REACH. BED LOCKED AND IN LOWEST POSITION. NEEDS ATTENDED. WILL ENDORSE TO DAY SHIFT NURSE NIDA ZHENG TO CONTINUE CARE.
[2020-06-30 08:00] VITALS: BP 114/73
[2020-06-30] MEDS: LOSARTAN POTASSIUM 50 MG TABLET PO SCH (08:40)
[2020-06-30] MEDS: DEXAMETHASONE SOD PHOSPHATE 10 MG/ML VIAL IV SCH (08:40)
[2020-06-30] MEDS: BACLOFEN (10 MG) 10 MG TABLET PO SCH (08:41)
[2020-06-30] MEDS: MELOXICAM 7.5 MG TABLET PO SCH (08:41)
[2020-06-30 12:00] VITALS: BP 141/87
--- NOTE | 2020-06-30 15:05 | NUR ---
Report called to Criss ALVA from [facility]
[2020-06-30 16:00] VITALS: BP 144/90
--- NOTE | 2020-06-30 17:47 | NUR ---
Patient cleared for d/c to SNF by MD. Patient awake , alert and oriented x3 , Salvadorean speaking only. Breathing unlabored and even on 3l O2 via nasal canula saturation 94%. VS are stable within baseline. Skin is intact. Patient ambulatory with assistance. All needs attended prior discharge. Patient received d/c instructions and verbalized understanding. Instructions and valuable form sighed by patient and all belongings with the patient. IV line and ID wrist band removed. Patient safely picked up by ambulance.
== END 2020-06-30 18:04 | DRG 137 ==
LOC: ER 18:13 → TELE1 21:01 → UNDODISIN 06-30 13:33
PROVIDERS: ADMIT Internal Medicine; ATTEND Internal Medicine
PROC: 30233L1 Transfusion of Nonautologous Fresh Plasma into Peripheral Vein, Percutaneous Approach (ICD-10-PCS; principal; 2020-06-17)
DX: U07.1 COVID-19 (principal); J12.89 Other viral pneumonia; I10 Essential (primary) hypertension; J96.01 Acute respiratory failure with hypoxia; Z68.30 Body mass index [BMI] 30.0-30.9, adult; E66.01 Morbid (severe) obesity due to excess calories; E43 Unspecified severe protein-calorie malnutrition; Z88.0 Allergy status to penicillin; E88.09 Other disorders of plasma-protein metabolism, not elsewhere classified; Z68.29 Body mass index [BMI] 29.0-29.9, adult; D72.829 Elevated white blood cell count, unspecified
CPT/HCPCS: 36415; 36600; 71045-TC; 80048-TC; 80053-TC; 80076-TC; 82803-TC; 83615-TC; 83735-TC; 83880; 84100-TC; 84484-TC; 85025-TC; 85378-TC; 85610-TC; 85730-TC; 86140-TC; 86480; 86850-TC; 94799-TC; G0378; J0456; J0696; J1100; J1650; J3262; J7030; J7050; J7060; P9017-BL

== ENCOUNTER 2022-02-13 04:29 | Emergency (ER) | payer MEDICARE, OTHER ==
[~2022-02-13] VITALS: Ht 167.6 cm; Wt 68.0 kg
[~2022-02-13 04:29] MED LIST: BACL10TA PO; LOSA50TA39 PO; MELO-107 PO
--- NOTE | 2022-02-13 04:35 | NUR ---
TO ER BED 3. BIBWIFE C/O N/V X 3 DAYS. PT STATES HE IS AN ALCOHOLIC AND WAS SOBER FOR 7 YEARS AND RECENTLY STARTED DRINKING AGAIN. PT DENIES ANY CHEST PAIN OR SOB. CONNECTED TO MONITOR. AWAITING MD HERNANDEZ
--- NOTE | 2022-02-13 04:49 | NUR ---
GENERAL EXPEDITOR AT PT'S BEDSIDE
[2022-02-13 04:57] LABS: BASOPHILS # (AUTO) 0.1 K/uL (0.0-0.2); HEMATOCRIT 49 % (39-51); HEMOGLOBIN 16.8 g/dL (13.5-17.5); LYMPHOCYTES % (AUTO) 32.3 % (20.0-44.0); MEAN CORPUSCULAR HGB CONC 35 g/dl (31.0-36.0); MEAN CORPUSCULAR VOLUME 92 fL (80-96); MONOCYTES # (AUTO) 0.4 K/uL (0.1-1.30); MONOCYTES % (AUTO) 5.8 % (2.0-12.0); NEUTROPHILS # (AUTO) 3.7 K/uL (1.8-8.9); NEUTROPHILS % (AUTO) 59.9 % (43.0-81.0); PLATELET COUNT (AUTO) 242 K/uL (150-450); RED BLOOD CELL COUNT(AUTO) 5.31 MIL/uL (4.5-6.0); WHITE BLOOD COUNT (AUTO) 6.3 K/uL (4.3-11.0)
[2022-02-13 05:09] LABS: CALCIUM, SERUM 8.6 mg/dL (8.5-10.1); CREATININE 0.9 mg/dL (0.6-1.3); POTASSIUM 3.7 mmol/L (3.5-5.1)
[2022-02-13 05:15] LABS: ALBUMIN 3.6 g/dL (3.4-5.0); BILIRUBIN,DIRECT 0.2 mg/dL (0.0-0.2); BILIRUBIN,TOTAL 0.8 mg/dL (0.2-1.0); TOTAL PROTEIN, SERUM 6.9 g/dL (6.4-8.2)
[2022-02-13] MEDS ORDERED: ONDANSETRON 4 MG TAB.RAPDIS ONE (06:39)
[2022-02-13] MEDS ORDERED: MAG HYDROX/AL HYDROX/SIMETH 30 ML UDC ONE (06:39)
[2022-02-13] MEDS ORDERED: FAMOTIDINE (20 MG) 20 MG TABLET ONE (06:39)
[2022-02-13] MEDS ORDERED: ONDA4TAB5 PO (06:48)
[2022-02-13] MEDS ORDERED: MAG355OR18 PO (06:48)
[2022-02-13 06:56] VITALS: BP 170/99
--- NOTE | 2022-02-13 06:56 | NUR ---
Patient discharged to home in stable condition. Written and verbal after care instructions given. Patient verbalizes understanding of instruction.
[2022-02-13] MEDS ORDERED: ONDANSETRON 4 MG TAB.RAPDIS SL ONE (07:00)
[2022-02-13] MEDS ORDERED: MAG HYDROX/AL HYDROX/SIMETH 30 ML UDC PO ONE (07:00)
[2022-02-13] MEDS ORDERED: FAMOTIDINE (20 MG) 20 MG TABLET PO ONE (07:00)
== END 2022-02-13 06:57 | disposition home or self-care (01) ==
LOC: ER 04:29
DX: F10.129 Alcohol abuse with intoxication, unspecified (principal); R11.2 Nausea with vomiting, unspecified; I10 Essential (primary) hypertension; E78.5 Hyperlipidemia, unspecified; Z79.899 Other long term (current) drug therapy; Y90.9 Presence of alcohol in blood, level not specified
CPT/HCPCS: 36415; 71045-TC; 80048-TC; 80076-TC; 83690-TC; 85025-TC; Q0162

== ENCOUNTER 2022-12-31 04:49 | Emergency (ER) | payer MEDICARE, OTHER ==
[~2022-12-31] VITALS: Ht 165.1 cm; Wt 88.0 kg
[~2022-12-31 04:49] MED LIST changes: +MAG355OR18 PO; +ONDA4TAB5 PO
--- NOTE | 2022-12-31 05:03 | NUR ---
C/O chest pressure non radiating and headache started around 2am 7/10 pain scale, on room air. no s/s of distress noted.
--- NOTE | 2022-12-31 05:06 | NUR ---
EKG AT BEDSIDE
--- NOTE | 2022-12-31 05:22 | NUR ---
laundry helper at bedside
[2022-12-31 05:36] LABS: BASOPHILS % (AUTO) 0.8 % (0.0-2.0); HEMATOCRIT 46 % (39-51); HEMOGLOBIN 15.4 g/dL (13.5-17.5); LYMPHOCYTES # (AUTO) 2.1 K/uL (0.8-4.8); LYMPHOCYTES % (AUTO) 34.8 % (20.0-44.0); MEAN CORPUSCULAR HGB CONC 34 g/dl (31.0-36.0); MEAN CORPUSCULAR VOLUME 91 fL (80-96); MONOCYTES # (AUTO) 0.3 K/uL (0.1-1.30); MONOCYTES % (AUTO) 5.4 % (2.0-12.0); NEUTROPHILS # (AUTO) 3.4 K/uL (1.8-8.9); PLATELET COUNT (AUTO) 201 K/uL (150-450); RED BLOOD CELL COUNT(AUTO) 5.01 MIL/uL (4.5-6.0); WHITE BLOOD COUNT (AUTO) 6.1 K/uL (4.3-11.0)
--- NOTE | 2022-12-31 05:37 | NUR ---
xray at bedside
[2022-12-31 05:50] LABS: CALCIUM, SERUM 8.1 mg/dL (8.5-10.1); CARBON DIOXIDE 29 mmol/L (21-32); CHLORIDE 102 mmol/L (98-107); CREATININE 0.9 mg/dL (0.6-1.3); GLUCOSE 141 mg/dL (74-106); POTASSIUM 3.4 mmol/L (3.5-5.1); SODIUM SERUM 139 mmol/L (136-145); UREA NITROGEN, BLOOD 9 mg/dL (7-18)
[2022-12-31 09:25] VITALS: BP 148/84
--- NOTE | 2022-12-31 09:25 | NUR ---
pt medically cleared. Patient discharged to home in stable condition. Written and verbal after care instructions given. Patient verbalizes understanding of instruction.
== END 2022-12-31 09:26 | disposition home or self-care (01) ==
LOC: ER 04:51
DX: F10.10 Alcohol abuse, uncomplicated (principal); E78.5 Hyperlipidemia, unspecified; I10 Essential (primary) hypertension; Z79.899 Other long term (current) drug therapy; Y90.9 Presence of alcohol in blood, level not specified
CPT/HCPCS: 36415; 71045-TC; 80048-TC; 83735-TC; 84484-TC; 85025-TC

== ENCOUNTER 2025-08-28 09:13 | Emergency (ER) | payer MEDICARE, OTHER ==
[~2025-08-28] VITALS: Ht 180.3 cm; Wt 83.9 kg
[2025-08-28 09:33] VITALS: TEMP 98.2
[2025-08-28 09:42] LABS: PLATELET COUNT (AUTO) 277 K/uL (150-450); RED BLOOD CELL COUNT(AUTO) 5.38 MIL/uL (4.5-6.0); RED CELL DISTRIBUTION WIDTH 13.3 % (11.5-15.0); WHITE BLOOD COUNT (AUTO) 8.7 K/uL (4.3-11.0)
[2025-08-28 09:57] LABS: ALCOHOL, BLOOD 407 mg/dL (0-10); ASPARTATE AMINOTRANSFERASE 19 U/L (15-37); CALCIUM, SERUM 8.4 mg/dL (8.5-10.1); CREATININE 0.9 mg/dL (0.6-1.3); SODIUM SERUM 146 mmol/L (136-145); TOTAL PROTEIN, SERUM 7.3 g/dL (6.4-8.2); UREA NITROGEN, BLOOD 15 mg/dL (7-18)
[2025-08-28 10:50] LABS: AMPHETAMINE, URINE NEGATIVE (NEGATIVE); BARBITURATE, URINE NEGATIVE (NEGATIVE); BENZODIAZEPINE, URINE NEGATIVE (NEGATIVE); CANNABINOID, URINE NEGATIVE (NEGATIVE); COCCAINE, URINE NEGATIVE (NEGATIVE)
[2025-08-28 10:52] LABS: OPIATE, URINE POSITIVE (NEGATIVE)
[2025-08-28] MEDS ORDERED: NALO4SPR BNOSTRILS (15:25)
[2025-08-28 18:47] VITALS: BP 125/85; O2SAT 97
== END 2025-08-28 18:15 | disposition home or self-care (01) ==
LOC: ER 09:15
DX: F10.129 Alcohol abuse with intoxication, unspecified (principal); F11.10 Opioid abuse, uncomplicated; E78.5 Hyperlipidemia, unspecified; I11.9 Hypertensive heart disease without heart failure; Z79.1 Long term (current) use of non-steroidal anti-inflammatories (NSAID); Z79.899 Other long term (current) drug therapy; Y90.9 Presence of alcohol in blood, level not specified
CPT/HCPCS: 36415; 73030-TC; 80048-TC; 80076-TC; 85025-TC; G0480